=== PATIENT | female | born 1955 | race Caucasian/White ===

== ENCOUNTER 2021-05-04 08:06 | Outpatient (CLI) | payer BC, SELFPAY ==
--- NOTE | ~2021-05-04 | MM_ITS ---
EXAMINATION: MM screening [facility] BI w yolanda HISTORY: Screening mammogram TECHNIQUE: Craniocaudal and mediolateral oblique 3-D tomosynthesis images were obtained and synthetic 2-D images were generated. CAD analysis was submitted and interpreted. COMPARISON: 05/02/2019, 08/07/2014, 03/14/2012 BREAST PARENCHYMAL COMPOSITION: The breasts are heterogeneously dense, which may obscure small masses . FINDINGS: There is no evidence of suspicious mass, calcification, or architectural distortion to sugg est malignancy in either breast. There has been no suspicious interval change. IMPRESSION: 1. No mammographic evidence of malignancy. 2. Recommend routine screening mammography in one year. BI-RADS Category 1: Negative Reviewed, dictated and finalized at location A. ED MILK MIXER
== END 2021-05-04 08:07 | disposition home or self-care (01) ==
LOC: ANHIMG 08:09
PROVIDERS: PCP Family Medicine; Visit Provider Student in an Organized Health Care Education/Training Program
DX: Z12.31 Encounter for screening mammogram for malignant neoplasm of breast (principal)
CPT/HCPCS: 77063; 77067

== ENCOUNTER 2022-07-12 08:24 | Outpatient (CLI) | payer MEDICARE, SELFPAY ==
[2022-07-12 13:11] LABS: Alanine Aminotransferase 21 U/L (6-35); Albumin Level 4.2 g/dL (3.5-5.1); Alkaline Phosphatase 63 U/L (38-126); Anion Gap 4 mmol/L (8-16); Aspartate Amino Transferase 39 U/L (14-36); Bilirubin,Total 0.8 mg/dL (0.2-1.3); Blood Urea Nitrogen 9 mg/dL (7-17); Calcium 9.1 mg/dL (8.4-10.2); Carbon Dioxide 30 mmol/L (22-30); Chloride 102 mmol/L (98-107); Cholesterol 266 mg/dL (0-200); Creatine Kinase 65 U/L (30-135); Estimated Glomerular Filt Rate > 60; Glucose 96 mg/dL (65-110); HDL Direct 74 mg/dL; LDL Cholesterol Direct 126 mg/dL; Potassium 3.8 mmol/L (3.4-5.0); Sodium 136 mmol/L (137-145); Triglycerides 91 mg/dL (<150)
== END 2022-07-12 08:25 | disposition home or self-care (01) ==
PROVIDERS: PCP Family Medicine; Visit Provider Specialist
DX: R00.2 Palpitations (principal); I10 Essential (primary) hypertension
CPT/HCPCS: 36415; 80053; 80061; 82550

== ENCOUNTER 2022-07-15 08:06 | Outpatient (CLI) | payer MEDICARE, SELFPAY ==
--- NOTE | ~2022-07-15 | DEXA_ITS ---
Bone Density Report Name: SOFIA OH Age: 67 Sex: Female Ethnicity: White Date of : 1955 Indication: postmenopausal; screening for osteoporosis; Referring Provider: OLY DE PAZ Study: Bone densitometry was performed. Exam Date: July 15, 2022 Accession number: [id number] Bone Density: Region BMD T-score Z-score Classification AP Spine(L1-L4) 0.892 -1.4 0.4 Osteopenia Femoral Neck (Left) 0.689 -1.4 0.1 Osteopenia Total Hip (Left) 0.819 -1.0 0.2 Normal Femoral Neck (Right) 0.597 -2.3 -0.8 Osteopenia Total Hip (Right) 0.853 -0.7 0.5 Normal Total Hip Mean 0.836 -0.9 0.4 Normal World Health Organization criteria for BMD impression classify patients as: Normal (T-score at or above -1.0), Osteopenia (T-score between -1.0 and -2.5), or Osteoporosis (T-score at or below -2.5). 10-year Fracture Risk(1): Major Osteoporotic Fracture 11% Hip Fracture 2.0% Reported Risk Factors: [place] (), Neck BMD=0.597, BMI=21.3 (1) FRAX(R) Version 3.08. Fracture probability calculated for an untreated patient. Fracture probability may be lower if the patient has received treatment. Clinical Information Provided by Patient: Has used the following medications: Vitamin D, Calcium Patient maximum height was 64.75 Menopause Age: 50 Drinks caffeinated beverages Onset of menses at age 14 Number of children 1 Impression: The patient has low bone mass, based on the Right Femoral Neck T-score. The patient has an estimated ten-year risk of hip fracture of 2% and an estimated ten-year risk of major fracture of 11%, based on the WHO FRAX algorithm. Discussion: BONE DENSITY IS LOW AT ONE OR MORE SKELETAL SITES. This patient's lowest T-score is low at one or more skeletal sites. It meets the World Health Organization's (WHO) criteria for ?low bone mass? (T-score between -1.0 and -2.5). The patient's 10-year risk of fracture as calculated by FRAX is less than the threshold where pharmacological therapy is recommended by the National Osteoporosis Foundation (NOF). However, all treatment decisions require clinical judgment and consideration of individual patient factors, including patient preferences, comorbidities, previous drug use, risk factors not captured in the FRAX model (e.g., frailty, falls, vitamin D deficiency, increased bone turnover, interval significant decline in bone density) and possible under or overestimation of fracture risk by FRAX. The patient should follow a healthful lifestyle (good nutrition with adequate calcium and vitamin D, and appropriate weight-bearing exercise). Follow-Up: Consider repeating this study in 2 to 3 years to reassess this patient's status, or sooner if there is some new clinical indication. Reported by: JAVAN on 07/15/2022 8:40:00 AM.
--- NOTE | ~2022-07-15 | MM_ITS ---
EXAMINATION: MM screening [facility] BI w yolanda HISTORY: Screening mammogram TECHNIQUE: Craniocaudal and mediolateral oblique 3-D tomosynthesis images were obtained and synthetic 2-D images were generated. CAD analysis was submitted and interpreted. COMPARISON: 04/30/2021, 05/02/2019 bilateral screening mammogram examinations BREAST PARENCHYMAL COMPOSITION: There are scattered areas of fibroglandular density. FINDINGS: There is no evidence of suspicious mass, calcification, or architectural distortion to sugg est malignancy in either breast. There has been no suspicious interval change. IMPRESSION: 1. No mammographic evidence of malignancy. 2. Recommend routine screening mammography in one year. BI-RADS Category 1: Negative Reviewed, dictated and finalized at location A. ORATE EVENT PLANNER
== END 2022-07-15 08:07 | disposition home or self-care (01) ==
LOC: ANHIMG 08:13
PROVIDERS: PCP Family Medicine; Visit Provider Student in an Organized Health Care Education/Training Program
DX: Z12.31 Encounter for screening mammogram for malignant neoplasm of breast (principal); Z78.0 Asymptomatic menopausal state; M85.88 Other specified disorders of bone density and structure, other site; M85.852 Other specified disorders of bone density and structure, left thigh; M85.851 Other specified disorders of bone density and structure, right thigh
CPT/HCPCS: 77063; 77067; 77080

== ENCOUNTER 2023-01-30 10:21 | Outpatient (CLI) | payer MEDICARE, SELFPAY ==
[2023-01-30 11:30] LABS: LDL Cholesterol Direct 136 mg/dL
[2023-01-30 11:55] LABS: Alanine Aminotransferase 18 U/L (6-35); Albumin Level 4.2 g/dL (3.5-5.1); Alkaline Phosphatase 66 U/L (38-126); Anion Gap 3 mmol/L (8-16); Aspartate Amino Transferase 28 U/L (14-36); Bilirubin,Total 0.7 mg/dL (0.2-1.3); Blood Urea Nitrogen 12 mg/dL (7-17); Calcium 9.3 mg/dL (8.4-10.2); Carbon Dioxide 29 mmol/L (22-30); Chloride 103 mmol/L (98-107); Cholesterol 254 mg/dL (0-200); Creatine Kinase 62 U/L (30-135); Estimated Glomerular Filt Rate > 60; Glucose 99 mg/dL (65-110); HDL Direct 77 mg/dL; Potassium 4.3 mmol/L (3.4-5.0); Sodium 135 mmol/L (137-145); Triglycerides 66 mg/dL (<150)
== END 2023-01-30 10:22 | disposition home or self-care (01) ==
PROVIDERS: PCP Family Medicine; Visit Provider Specialist
DX: E78.5 Hyperlipidemia, unspecified (principal)
CPT/HCPCS: 36415; 80053; 80061; 82550

== ENCOUNTER 2023-09-21 07:56 | Outpatient (CLI) | payer MEDICARE, SELFPAY ==
--- NOTE | ~2023-09-21 | MM_ITS ---
EXAMINATION: MM screening [facility] BI w yolanda HISTORY: Screening TECHNIQUE: Craniocaudal and mediolateral oblique 3-D tomosynthesis images were obtained and synthetic 2-D images were generated. CAD analysis was submitted and interpreted. COMPARISON: No prior mammogram is available for comparison at this institution. Comparison to multipl e prior studies sequentially, with oldest reviewed study dated 05/04/2011. BREAST PARENCHYMAL COMPOSITION: There are scattered areas of fibroglandular density. FINDINGS: There is no evidence of suspicious mass, calcification, or architectural distortion to sugg est malignancy in either breast. There has been no suspicious interval change. IMPRESSION: 1. No mammographic evidence of malignancy. 2. Recommend routine screening mammography in one year. BI-RADS Category 1: Negative Reviewed, dictated and finalized at location A.
== END 2023-09-21 07:57 | disposition home or self-care (01) ==
LOC: ANHIMG 08:00
PROVIDERS: PCP Family Medicine; Visit Provider Student in an Organized Health Care Education/Training Program
DX: Z12.31 Encounter for screening mammogram for malignant neoplasm of breast (principal)
CPT/HCPCS: 77063; 77067

== ENCOUNTER 2024-02-14 07:39 | Day surgery (SDC) | payer MEDICARE, SELFPAY ==
[2024-01-23 14:31] VITALS: BMI 22.1
[2024-01-30 11:24] VITALS: BMI 22.3
[2024-02-14] MEDS: LACTATED RINGERS 1,000 ML 150 ML IV CONT (08:47)
[2024-02-14 08:48] VITALS: BP 141/78; PULSE 79; RESP 16; TEMP 37.2; O2SAT 100; BMI 21.4
--- NOTE | 2024-02-14 08:52 | P.PNAN_ITS ---
Anes - Initial Pre Proc Eval Procedure: Operation Date: 02/14/24 10:00 Proposed Procedures p Diagnostic Colonoscopy - Ganga Lezama MD Date/Time: 02/14/24 08:52 Surgeon: Ganga Lezama MD Pre Op Diagnosis: History of Colon Polyps Patient Data Age: 68 Gender: F Height: 1.63 m Weight: 56.6 kg Last Vital Signs Temp 37.2 C 02/14/24 08:48 Pulse 78 02/14/24 08:50 Resp 14 02/14/24 08:50 BP 96/63 L 02/14/24 08:50 Pulse Ox 99 02/14/24 08:50 O2 Del Method Room Air 02/14/24 08:50 Allergies Allergy/AdvReac Type Severity Reaction Status Date / Time codeine Allergy Unknown Dizziness Verified 02/14/24 08:38 Home Medications Medication Instructions Recorded Confirmed Type losartan 50 mg tablet 50 mg PO DAILY 04/06/20 02/14/24 History ezetimibe 10 mg tablet 10 mg PO DAILY 07/05/23 02/14/24 History sodium,potassium,mag sulfates 17.5 See Rx Instructions PO .COMPLEX 01/23/24 02/14/24 Rx gram-3.13 gram-1.6 gram oral soln #354 mL (Suprep Bowel Prep Kit) multivit with minerals-iron 18 1 tablet PO DAILY 01/30/24 02/14/24 History mg-folic ac 400 mcg-vit K 25 mcg tablet (Adults Multivitamin) omega-3 fatty acids-fish oil 300 1 cap PO DAILY 01/30/24 02/14/24 History mg-500 mg capsule (Fish Oil) Patient hx anesthesia problems: none Family hx anesthesia problems: none Results Review: All pre-operative results and documents have been reviewed as part of the pre- operative evaluation. [facility] Past Medical History Medical History Acid reflux Hyperlipidemia Hypertension Spontaneous Thyroid disease Surgical History Surgical History H/O dilation and curettage Family History Family History Mother Hypertension, Onset Age: 84 Cerebrovascular accident, Onset Age: 84 Father , 89 Acute myocardial infarction Social History Social History Smoking status: Never smoker Second hand tobacco smoke exposure: No Alcohol intake: current Substance use: never Substance use type: does not use Living arrangements: with family Spiritual care concerns: No Anes - Eval Final PreProcedure Day of Procedure 02/14/24 08:52 Patient weight: normal Heart: regular rate and rhythm Lungs: clear to auscultation Airway: Mallampati scale class 1 Neurological: alert and oriented ASA classification: II Emergent: no Anesthetic plan: proceed Anesthesia type and monitoring: general GIVS Results Review: All pre-operative results and documents have been reviewed as part of the pre- operative evaluation. Informed Consent: The patient's anesthetic plan and its attendant risks and benefits were disc ussed with the patient/family/POA. Questions were solicited and answers provided to the satisfaction of the patient/family/POA.
--- NOTE | 2024-02-14 09:02 | P.HP_ITS ---
History of Present Illness History of Present Illness Consent: Risks, benefits, and alternatives have been discussed and questions answered. Patient agrees to proceed with procedure. Chief complaint: History of Colon Polyps Narrative: Rama Rodriguez is a 68 year old female presents for screening colonoscopy. Patient's current weight appetite and bowel movements are normal. She denies abdominal pain. Patient has had no bleeding. Family history is noncontribut ory. Was told she had a polyp 5 years ago. She presents today for follow-up exam. Review of Systems Review of Systems: All systems reviewed & are unremarkable except as noted in HPI and below PMFSH Past Medical History Medical History Acid reflux Hyperlipidemia Hypertension Spontaneous Thyroid disease Surgical History Surgical History H/O dilation and curettage Family History Family History Mother Hypertension, Onset Age: 84 Cerebrovascular accident, Onset Age: 84 Father , 89 Acute myocardial infarction Social History Social History Smoking status: Never smoker Second hand tobacco smoke exposure: No Alcohol intake: current Substance use: never Substance use type: does not use Living arrangements: with family Spiritual care concerns: No Meds Home Medications and Allergies Home Medications Medication Instructions Recorded Confirmed Type losartan 50 mg tablet 50 mg PO DAILY 04/06/20 02/14/24 History ezetimibe 10 mg tablet 10 mg PO DAILY 07/05/23 02/14/24 History sodium,potassium,mag sulfates 17.5 See Rx Instructions PO .COMPLEX 01/23/24 02/14/24 Rx gram-3.13 gram-1.6 gram oral soln #354 mL (Suprep Bowel Prep Kit) multivit with minerals-iron 18 1 tablet PO DAILY 01/30/24 02/14/24 History mg-folic ac 400 mcg-vit K 25 mcg tablet (Adults Multivitamin) omega-3 fatty acids-fish oil 300 1 cap PO DAILY 01/30/24 02/14/24 History mg-500 mg capsule (Fish Oil) Allergies Allergy/AdvReac Type Severity Reaction Status Date / Time codeine Allergy Unknown Dizziness Verified 02/14/24 08:38 Vital Signs Vital Signs - 24 hr 02/14/24 08:48 Temperature 99 F Pulse Rate 79 Respiratory Rate 16 Blood Pressure 141/78 H Pulse Oximetry 100 Oxygen Delivery Room Air Exam Narrative: Physical exam reveals patient to be alert. Vital signs stable. HEENT exam is unremarkable. Is anicteric. Clear to auscultation and percussion is without murmur sounds. Abdomen bowel sounds are present soft nontender with no organomegaly. Digital external rectal exam normal. Assessment and Plan Assessment and plan (1) History of colon polyps: Code(s): Z86.010 - Personal history of colonic polyps Status: Acute Assessment and Plan: Patient gives a history of a colon polyp identified elsewhere 5 years ago. She presents today for follow-up screening colonoscopy. Further recommendations may be given after endoscopy.
[2024-02-14 09:28] VITALS: BP 120/60; PULSE 70; RESP 16; O2SAT 100
[2024-02-14 09:38] VITALS: BP 129/75; PULSE 68; RESP 16; O2SAT 100
--- NOTE | 2024-02-14 09:42 | SUR.PREOP ---
0845 - MD Hawthorne notifed pt took Losartan this AM.
[2024-02-14 09:48] VITALS: BP 138/77; PULSE 67; RESP 16; O2SAT 100
--- NOTE | 2024-02-14 10:39 | WPDANESPN ---
Anes - Prog Note Post-Op Date/Time: 02/14/24 10:39 Cardiovascular status: normal Respiratory status: normal Airway patency: baseline Mental status: baseline Post-Op hydration status: normal Vital Signs: Last Vital Signs Temp 37.2 C 02/14/24 08:48 Pulse 67 02/14/24 09:48 Resp 16 02/14/24 09:48 BP 138/77 02/14/24 09:48 Pulse Ox 100 02/14/24 09:48 O2 Del Method Room Air 02/14/24 09:48 Pain Score (VAS): 0 I/O: Intake & Output 02/13/24 02/14/24 02/14/24 23:59 07:59 15:59 Intake Total 1000 Balance 1000 Post-procedural complaints: none Patient Feedback: Patient satisfied with anesthetic care. Other Findings: Patient vital signs back to baseline. Patient denies nausea and vomiting. Patient's pain under control. Patient OK for discharge.
== END 2024-02-14 10:02 | disposition home or self-care (01) ==
PROVIDERS: PCP Family Medicine; Visit Provider Internal Medicine Gastroenterology
PROC: 0DJD8ZZ Inspection of Lower Intestinal Tract, Via Natural or Artificial Opening Endoscopic (ICD-10-PCS; CPT 45378; principal; 2024-02-14 10:00)
DX: Z86.010 Personal history of colon polyps (principal); D12.5 Benign neoplasm of sigmoid colon; K64.8 Other hemorrhoids
CPT/HCPCS: 45385

== ENCOUNTER 2024-02-14 14:57 | Outpatient (NON) | payer MEDICARE, SELFPAY | END 2024-02-14 14:58 | disposition home or self-care (01) | LOC: ANHLAB 15:00 | PROVIDERS: PCP Family Medicine; Visit Provider Internal Medicine Gastroenterology | DX: K63.5 Polyp of colon (principal); Z86.010 Personal history of colon polyps | CPT/HCPCS: 88305 ==

== ENCOUNTER 2024-09-29 15:28 | Outpatient (CLI) | payer MEDICARE, SELFPAY ==
--- NOTE | ~2024-09-29 | MM_ITS ---
EXAMINATION: MM screening [facility] BI w yolanda HISTORY: Screening TECHNIQUE: Craniocaudal and mediolateral oblique 3-D tomosynthesis images were obtained and synthetic 2-D images were generated. CAD analysis was submitted and interpreted. COMPARISON: 09/21/2023 and dating back to 05/02/2019 BREAST PARENCHYMAL COMPOSITION: There are scattered areas of fibroglandular density. FINDINGS: Punctate calcifications detected bilaterally, vascular in origin and benign in appearance. Punctate calcifications are detected bilaterally, stable, diffuse and benign in appearance. Stable parenchymal pattern without suspicious microcalcifications, architectural distortion, discrete masses or significant asymmetry. IMPRESSION: 1. No mammographic evidence of malignancy. 2. Recommend routine screening mammography in one year. BI-RADS Category 2: Benign finding(s). Reviewed, dictated and finalized at location A.
--- OUTSIDE RECORDS SUMMARY | 2024-09-29 17:24 | XMS_ITS | Encounter Summary ---
Author Organization [facility] Address [address] [place] [address] Care Team Providers Care Waste Machine Tender Name Role Phone Neli Albrecht MD Primary Care Provider + Encounter Details Date Type Department Care Team (Latest Contact Info) Description 09/06/2024 Scan [facility] Scanned, Doc Med Group Social History Tobacco Use Types Packs/Day Years Used Date Smoking Tobacco: Never Passive Smoke Exposure: Never Smokeless Tobacco: Never Comments:I have nver smoked Alcohol Use Standard Drinks/Week Comments Yes 0 (1 standard drink = 0.6 oz pur e alcohol) social, maybe 2-3/week PHQ-2 Answer Date Recorded Patient Health Questionnaire-2 Score 0 08/19/2024 Comments No Sex and Gender Information Value Date Recorded Sex Assigned at Female 08/19/2024 8:54 AM CDT Legal Sex Female 4:53 PM CDT Gender Identity Not on file Sexual Orientation Not on file documented as of this encounter Plan of Treatment Upcoming Encounters Date Type Department Care Team (Late st Contact Info) Description 08/25/2025 10:30 AM CDT Office Visit [facility] Family Medicine - [place] [address] [facility] [address] [place] [address] [phone] Neli Albrecht MD [address] [facility] [address] [place] [address] [phone] 08/25/2025 11:30 AM CDT Office Visit [facility] Family Medicine - [place] [address] [facility] [address] [place] [address] [phone] Neli Albrecht MD [address] [place] [address] documented as of this encounter Visit Diagnoses Not on filedocumented in this encounter Care Teams Waste Machine Tender Relationship Specialty Start Date End Date Neli Albrecht MD [address] [place] [address] PCP - General FAMILY PRACTICE 08/19/24 documented as of this encounter
--- OUTSIDE RECORDS SUMMARY | 2024-09-29 17:24 | XMS_ITS | Encounter Summary ---
Author Organization [facility] Address [address] [place] [address] Care Team Providers Care Funeral Home Location Manager Name Role Phone Neli Albrecht MD Primary [...] Description 08/25/2025 10:30 AM CDT Office Visit [facility] Family Medicine - [place] [address] [facility] [address] [place] [address] [phone] Neli Albrecht MD [address] [facility] [address] [place] [address] [phone] 08/25/2025 11:30 AM CDT Office Visit [facility] Family Medicine - [place] [address] [facility] [address] [place] [address] [phone] Neli Albrecht MD [address] [place] [address] documented as of this encounter Visit Diagnoses Not on filedocumented in this encounter Care Teams Funeral Home Location Manager Relationship Specialty Start Date End Date Neli Albrecht MD [address] [place] [address] PCP - General FAMILY PRACTICE 08/19/24 documented as of this encounter
--- OUTSIDE RECORDS SUMMARY | 2024-09-29 17:24 | XMS_ITS | Encounter Summary ---
Author Organization [facility] Care Team Providers Care Finish Mender Name Role Phone Ilsa Hebert Primary Care Provider + Ilsa Hebert Primary Care Provider + Jak Chisholm MD Primary Care Provider [phone] Encounter Details Date Type Department Care Team (Latest Contact Info) Description 04/03/2016 Orders Only [facility] ProviderCamila MD [address] [place], [place] [id number] Social History Tobacco Use Types Packs/Day Years Used Date Smoking Tobacco: Never Assessed Comments Unknown Sex and Gender Information Value Date Recorded Sex Assigned at Not on file Legal Sex Female 2:45 AM INCINERATOR OPERATOR Gender Identity Female 09/08/2020 3:16 PM CDT Sexual Orientation Straight 09/08/2020 3: 16 PM CDT documented as of this encounter Plan of Treatment Not on file documented as of this encounter Procedures Procedure Name Priority Date/Time Associated Diagnosis Comments SCAN - LABS 04/03/2016 12:00 AM CDT documented in this encounter Results * SCAN - LABS (04/03/2016 12:00 AM CDT) Narrative 04/03/2016 12:00 AM CDT Ordered by an unspecified provider. Historical Provider Final Res ult documented in this encounter Visit Diagnoses Not on filedocumented in this encounter Additional Health Concerns Infection Onset Date Last Indicated Resolved Time COVID: Suspected 04/26/2022 04/26/202204/26/2022 3:10 PM INCINERATOR OPERATOR documented as of this encounter Care Teams Finish Mender Relationship Specialty Start Date End Date Ilsa Hebert PA [address] [place] [address] PCP - General 05/30/17 08/21/18 Ilsa Hebert PA [address] [place] [address] PCP - General 08/22/18 12/29/18 Jak Chisholm MD [address] [place] [address] PCP - General 12/30/18 documented as of this encounter
--- OUTSIDE RECORDS SUMMARY | 2024-09-29 17:24 | XMS_ITS | Clinical Summary ---
Author Organization [facility] Address [address] [place] [address] Care Team Providers Care Negative Spotter Name Role Phone Jak Chisholm MD Primary Care Provider [phone] Allergies Active Allergy Reactions Criticality Noted Date Comments Codeine Dizziness,Unknown Low 12/04/2013 dizziness dizzy Medications ixlnnuioshzs-zsjg-d olic acid 18-400 mg-mcg tablet Rx: Multi Complete Active calcium-vits L3-W-G3-minerals 166.75 mg- 166.75 unit capsule Rx: Calcium Activ e fish oil-dha-epa 1,200-144-216 mg capsule Take by mouth Active losartan (COZAAR) 50 mg tablet TAKE 1 TABLET BY MOUTH EVERY DAY 90 tablet 2 4 Active ezetimibe (ZETIA) 10 mg tabletIndications:M ixed hyperlipidemia Take 1 tablet (10 mg total) by mouth daily 90 tablet 1 5 Active Active Problems Problem Noted Date Diagnosed Date Memory loss of unknown cause 05/14/2023 Episodic cluster headache, not intractable 07/13 Assessment & Plan (07/13/2021 11:02 AM SAMPLE TESTER GRINDER): Having multiple headaches per day - new Discussed cluster headaches vs. Migraine vs ? Will have patient monitor blood pressure daily, could be related Defers medications for now If BP normal and headaches persist, will get CT head Chronic right lower quadrant pain 12/02/2018 Essential hypertension 12/02/2018 Assessment & Plan (08/19/2020 2:14 PM SAMPLE TESTER GRINDER): Stable, no changes. Continue current regimen with losartan Mixed hyperlipidemia 12/02/2018 Assessment & Plan (08/19/2020 2:14 PM SAMPLE TESTER GRINDER): Stable, no changes. Continue current regimen with statin Thyroid nodule 07/31/2017 Resolved Problems Problem Noted Date Diagnosed Date Resolved Date Abdominal pain 09/10/2020 02/08/2023 Nausea 09/10/2020 02/08/2023 Melena 09/10/2020 02/08/2023 Chest pain at rest 08/19/2020 Fever blister 08/19/2020 02/08/2023 Assessment & Plan (08/19/2020 2:11 PM SAMPLE TESTER GRINDER): Recurrent May use valtrex PRN for each outbreak Cough 12/02/2018 02/08/2023 Immunizations Immunization Administration Dates Next Due Influenza, Quadrivalent, Cassy l Culture-based MDCK, Antibiotic Free, Intramuscular 03/20/2019 Influenza, Quadrivalent, Cassy l Culture-based MDCK, Preservative Free, Antibiotic Free, Intramuscular 03/07/2022 Influenza, Quadrivalent, Hig h Dose, Preservative Free, Intrr 02/26/2023 Influenza, Quadrivalent, Spl it, Intramuscular 03/26/2020 Influenza, Quadrivalent, Spl it, Preservative Free, Intramuscular 03/14/2021,03/19/2018,03/18/2018 Influenza, Unspecified 02/11/2023,2021(Deferred: Patient Refused) Evostor (J&J) SARS-CoV-2 Vaccination 08/16/2020 Pneumococcal Conjugate Pcv20 02/08/2023 Tdap 08/31/2022 Typhoid Inactivated 08/26/2022 ZOSTER Recombinant 05/19/2019,03/20/2019 Surgical History Surgery Date Site/Laterality Comments NO PAST SURGERIES Medical History Medical History Date Comments Hypertension Hyperlipidemia Family History Medical History Relation Name Comments Heart disease Brother Stroke Mother Relation Name Status Comments Brother Father Alive Mother Alive Sister Social History Tobacco Use Types Packs/Day Years Used Date Smoking Tobacco: Never Smokeless Tobacco: Never Tobacco Cessation:Counseling Given: Not Answered Alcohol Use Standard Drinks/Week Comments Yes 0 (1 standard drink = 0.6 oz pur e alcohol) AUDIT-C Answer Date Recorded Q1: How often do you have a drink containing alc ohol? 2-4 times a month 02/08/2023 Q2: How many drinks containi ng alcohol do you have on a typical day when you are drinking? 1 or 2 02/08/2023 Q3: How often do you have si x or more drinks on one occasion? Never 02/08/2023 PHQ-2 Answer Date Recorded PHQ-2 Total Score (If total score is 3 or more points, staff should administer the PHQ-9) 0 12/21/2023 PHQ-9 Answer Date Recorded PHQ-9 Total Score 2 12/21/2023 Personal Safety Answer Date Recorded Getting School Help Needed Not on file 05/21 Comments No Sex and Gender Information Value Date Recorded Sex Assigned at Not on file Legal Sex Female 2:45 AM SAMPLE TESTER GRINDER Gender Identity Female 09/08/2020 3:16 PM CDT Sexual Orientation Straight 09/08/2020 3: 16 PM CDT Obstetrics History Last Filed Vital Signs Vital Sign Reading Time Taken Comments Blood Pressure 128/68 12/21/2023 10:50 AM CDT Pulse 76 12/21/2023 10:50 AM CDT Temperature 36.6 C (97.8 F) 12/21/2023 10:50 AM CDT Respiratory Rate 18 12/21/2023 10:5 0 AM CDT Oxygen Saturation 98% 12/21/2023 10: 50 AM CDT Inhaled Oxygen Concentration - - Weight 58.4 kg (128 lb 12.8 oz) 024 10:50 AM CDT Height 162.6 cm (5' 4 ) 12/21/2023 10:5 0 AM CDT Body Mass Index 22.11 12/21/2023 10:50 AM CDT Plan of Treatment Health Maintenance Due Date Last Done Comments Hepatitis C Screening 1955 Hepatitis B Screening 1975 Well Visit 65+ 02/09/2024 02/08/2023 Covid-19 Vaccine (2023-07 5 season) 2024 02/26/2023, 05/19/2022, 01/15/2022, Additional history exists Influenza Vaccine (#1) 2024 , 02/11/2023, 03/07/2022, Additional history exists Fall Risk Assessment 05/14/2024 05/14/2023, 02/09/20 Osteoporosis Screening-Bone Density Scan 07/15/2024 07/15/2022 Breast Cancer Screening-Mammogram 09/20/2024 09/21/2023, 07/15/2022, 07/13/2017, Additional history exists Depression Screening 12/20/2024 12/21/2023, 12/21/2023, 05/14/2023, Additional history exists Colon Cancer Screening-Colonoscopy 02/13/2029 02/14/2024, 10/25/2018, 10/25/2018 DTaP/Tdap/Td Vaccine (2 - Td or Tdap) 08/31/2032 08/31/2022 Zoster Vaccine Completed 05/19/2019, 03/20/2019 Pneumococcal vaccine 65+ Completed 02/08/2023 Colon Cancer Screening-CT Colonography Discontinued 02/14/2024, 10/25/2018, 10/25/2018 Colon Cancer Screening-DNA Stool Discontinued 02/14/2024, 10/25/2018, 10/25/2018 Colon Cancer Screening-FIT Discontinued 02/13, 10/25/2018, 10/25/2018 Colon Cancer Screening-Sigmoidoscopy Discontinued 02/14/2024, 10/25/2018, 10/25/2018 Procedures Procedure Name Priority Date/Time Associated Diagnosis Comments COLONOSCOPY Routine 02/14/2024 4:32 PM CDT SCREENING MAMMOGRAM BILATERAL W MANI Schedule Routine, Read Routine (OP Routine) 09/21/2023 DEXA AXIAL SKELETON BONE DENSITY 1 OR MORE SITES Schedule Routine, Read Routine (OP Routine) 07/15/2022 4:16 PM SAMPLE TESTER GRINDER from Last 3 Months or Most Recently Relevant to Health Maintenance Results * Colonoscopy (02/14/2024 4:32 PM CDT) Anatomical Region Laterality Modality Other us Historical Provider ENDOSCOPY PROCEDURES Roxanne l Result * Screening Mammogram Bilateral W Mani (09/21/2023) Anatomical Region Laterality Modality Breast Bilateral Mammography us Historical Provider IMG MAMMO PROCEDURES Roxanne l Result * Dexa Axial Skeleton Bone Density 1 or 2 Site (07/15/2022 4:16 PM SAMPLE TESTER GRINDER) Anatomical Region Laterality Modality Body N/A Radiographic Cara ging us Historical Provider MD TOMPKINS DXA PROCEDURES Final Result from Last 3 Months or Most Recently Relevant to Health Maintenance Insurance MEDICARE [employer] MEDICARE [employer] Care Teams Negative Spotter Relationship Specialty Start Date End Date Jak Chisholm MD PCP - General 12/30/18
--- OUTSIDE RECORDS SUMMARY | 2024-09-29 17:24 | XMS_ITS | Encounter Summary ---
Author Organization [facility] Address [address] [place] [id number] Care Team Providers Care Commercial Specialist Name Role Phone Neli Albrecht MD Primary Care Provider + Encounter Details Date Type Department Care Team (Late st Contact Info) Description 08/21/2024 Good Deal Message Enc [facility] Family Medicine - [place] [address] [place] [address] [phone] Neli Albrecht MD [address] [place] [address] [phone] Update health status Social History Tobacco Use Types Packs/Day Years [...] on file documented as of this encounter Progress Notes * Neli Albrecht MD - 08/22/2024 7:33 AM CDT Great, thanks! documented in this encounter Plan of Treatment Upcoming Encounters Date Type Department Care Team (Late st Contact Info) Description 08/25/2025 10:30 AM CDT Office Visit [facility] [place] [phone] [address] [phone] Neli Albrecht MD [address] [facility] [address] [place] [address] [phone] 08/25/2025 11:30 AM CDT Office Visit [facility] - [address] [phone] Neli Albrecht MD [address] [facility] [address] [place] [phone] documented as of this encounter Visit Diagnoses Not on filedocumented in this encounter Care Teams Commercial Specialist Relationship Specialty Start Date End Date Neli Albrecht MD [address] [place] [address] [place] [address] [phone] PCP - General FAMILY PRACTICE 08/19/24 documented as of this encounter
--- OUTSIDE RECORDS SUMMARY | 2024-09-29 17:24 | XMS_ITS | Referral Summary ---
Author Organization [facility] Address [address] [place] [address] Care Team Providers Care Vehicle Calibration Engineer Name Role Phone Jak Chisholm MD Primary Care Provider [phone] Allergies Active Allergy Reactions Criticality Noted Date Comments Codeine Dizziness,Unknown Low 12/04/2013 dizziness dizzy Medications tpmayyhygety-wlmc-a olic acid 18-400 mg-mcg tablet Rx: Multi Complete Active calcium-vits Y8-U-B1-minerals 166.75 mg- 166.75 unit capsule Rx: Calcium [...] 07/13 Assessment & Plan (07/13/2021 11:02 AM SPINNING MACHINE TENDER): Having multiple headaches per day - new Discussed cluster headaches vs. Migraine vs ? Will have patient monitor blood pressure daily, could be related Defers medications for now If BP normal and headaches persist, will get CT head Chronic right lower quadrant pain 12/02/2018 Essential hypertension 12/02/2018 Assessment & Plan (08/19/2020 2:14 PM SPINNING MACHINE TENDER): Stable, no changes. Continue current regimen with losartan Mixed hyperlipidemia 12/02/2018 Assessment & Plan (08/19/2020 2:14 PM SPINNING MACHINE TENDER): Stable, no changes. Continue current regimen with statin Thyroid nodule 07/31/2017 Resolved Problems Problem Noted Date Diagnosed Date Resolved Date Abdominal pain 09/10/2020 02/08/2023 Nausea 09/10/2020 02/08/2023 Melena 09/10/2020 02/08/2023 Chest pain at rest 08/19/2020 Fever blister 08/19/2020 02/08/2023 Assessment & Plan (08/19/2020 2:11 PM SPINNING MACHINE TENDER): Recurrent May use valtrex PRN for each [...] Intramuscular 03/14/2021,03/19/2018,03/18/2018 Influenza, Unspecified 02/11/2023,2021(Deferred: Patient Refused) Contatta (J&J) SARS-CoV-2 Vaccination 08/16/2020 Pneumococcal Conjugate Pcv20 02/08/2023 Tdap 08/31/2022 Typhoid Inactivated 08/26/2022 ZOSTER Recombinant 05/19/2019,03/20/2019 Social History Tobacco Use Types Packs/Day Years [...] on file Legal Sex Female 2:45 AM SPINNING MACHINE TENDER Gender Identity Female 09/08/2020 3:16 PM CDT Sexual Orientation Straight 09/08/2020 3: 16 PM CDT Last Filed Vital Signs Vital Sign Reading [...] 12/21/2023 10:50 AM CDT Plan of Treatment Not on file Procedures Procedure Name Priority Date/Time Associated Diagnosis Comments COLONOSCOPY Routine 02/14/2024 4:32 PM CDT SCREENING MAMMOGRAM BILATERAL W MANI Schedule Routine, Read Routine (OP Routine) 09/21/2023 DEXA AXIAL SKELETON BONE DENSITY 1 OR MORE SITES Schedule Routine, Read Routine (OP Routine) 07/15/2022 4:16 PM SPINNING MACHINE TENDER from Last 3 Months or Most Recently Relevant to Health Maintenance Results * Colonoscopy (02/14/2024 4:32 PM CDT) Anatomical Region Laterality Modality Other us Historical Provider ENDOSCOPY PROCEDURES Roxanne mooney Result * Screening Mammogram Bilateral W Mani (09/21/2023) Anatomical Region Laterality Modality Breast Bilateral Mammography us Historical Provider IMAnika MAMMO PROCEDURES Roxanne l Result * Dexa Axial Skeleton Bone Density 1 or 2 Site (07/15/2022 4:16 PM SPINNING MACHINE TENDER) Anatomical Region Laterality Modality Body N/A Radiographic Cara ging us Historical Provider MD TOMPKINS DXA PROCEDURES Final Result from Last 3 Months or Most Recently Relevant to Health Maintenance [place] [address] MEDICARE [employer] Care Teams Vehicle Calibration Engineer Relationship Specialty Start Date End Date Jak Chisholm MD PCP - General 12/30/18
--- OUTSIDE RECORDS SUMMARY | 2024-09-29 17:24 | XMS_ITS | Data Portability ---
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 Role Phone MONOTOBY MOR Primary Care Provider [phone] Assessment Encounter Date Assessment Date Assessment LastModified by Organization Details LastModified Time 12/27/2021 12/27/2021 Patient Examined by CECILIO Gaffney, Documentation reviewed and approved by supervising physician patrick Not available 12/27/2021 11:55:37 06/27/2022 06/27/2022 Patient Examined by CECILIO Gaffney, Documentation reviewed and approved by supervising physician ignacia Not available 06/24/2022 03:07:02 Plan of Treatment Reminders Order Date Submit Date Provider Last Modified By Organization Details Last Modified Time Details Appointments None recorded. Lab None recorded. Referral None recorded. Procedures None recorded. Surgeries None recorded. Imaging electrocard iogram 2020 021 JOHANNA Not available 13:46:39 electrocard iogram 2020 021 JOHANNA Not available 13:46:08 Medication Orders Crestor 10 mg tablet 2021 022 [email or web address] [id number], [address], [place], [id number], 11:55:13 Patient TargetsNo targets recorded. Patient Instructions Encounter Date Encounter Id Patient Instructions Last Modified By Organization Details Last Modified Time 01/03/2021 [id number] chest pain: care instructions mzabad Not available 01/03/2021 15:33:55 heart valve disease: care instructions mzabad Not available 01/03/2021 15:33:55 mitral valve prolapse: care instructions mzabad Not available 01/03/2021 15:33:55 elevated blood pressure: care instructions mzabad Not available 01/03/2021 15:33:55 palpitations: care instructions mzabad Not available 01/03/2021 15:33:55 high cholesterol: care instructions mzabad Not available 01/03/2021 15:33:55 06/27/2022 [id number] Weight loss, pounds Exercise advised Low cholesterol diet advised Low sodium diet advised. [email or web address] Not available 06/27/2022 11:59:33 02/06/2023 [id number] Exercise advised Low cholesterol diet advised Low sodium diet advised. [email or web address] Not available 02/06/2023 14:43:05 Reason for Referral None Reported. Results Created Date Observation Date Name Description Value Unit Range Abnormal Flag Note LastModifiedBy Organization Detail LastModifiedTime 01/01/20 21 12/31/2020 elect rocar diogr am No observ ation record ed. ignacia Biswas MD [address], [place], [address], 04/07/2021 13:46:39 01/01/20 21 12/31/2020 elect rocar diogr am No observ ation record ed. ignacia Biswas MD [address], [place], [address], 04/07/2021 13:46:08 01/11/20 21 01/03/2021 elect rocar diogr am No observ ation record ed. [email or web address] Not Available 2020 10:28:24 12/29/19 22 12/27/2021 elect rocar diogr am No observ ation record ed. [email or web address] Not Available 2021 10:24:53 07/06/19 23 06/27/2022 elect rocar diogr am No observ ation record ed. [email or web address] Not Available 2022 16:15:35 08/02/19 23 07/25/2022 exerc ise stres s echoc ardio gram No observ ation record ed. [email or web address] Not Available 2022 09:56:41 08/24/1908/01/2022 , brad id arter y No observ ation record ed. [email or web address] Not Available 2022 11:29:11 02/08/20 23 02/06/2023 micki laragr am No observ ation record ed. [email or web address] Not Available 2022 11:59:44 Result Notes None recorded. Problems Name Problem SNOMED Code Status Onset Date Resolution Date Notes Provider Name and Address Organization Details Recorded Time Hyperlipidemia 51597383 Active 2017 Soila Urbano [facility], [place] - [facility] 3 03:03:58 Hypertensive disorder 23858692 Active 2017 Soila Urbano [facility], [place] - [facility] 3 03:04:03 Palpitations 10636822 Active 2017 Maxi Pate [facility], [place] - [facility] 8 16:42:23 Mitral valve prolapse 540643873 Active 2017 Maxi Pate [facility], [place] - [facility] 8 16:42:30 Thyroid nodule 388380620 Active 2017 Hala Carmen [facility], [place] - [facility] 8 12:01:54 Family history of coronary arterioscleros is 805870914 Active 2018 Maxi Pate [facility], [place] - [facility] 9 12:22:57 Chest pain 21292070 Active 2018 Maxi Pate [facility], [place] - [facility] 9 12:23:08 Problem Notes None recorded. Procedures Surgical History None recorded. Imaging Results Imaging Date Name Status LastModified by Organization Details LastModified Time 12/31/2020 electrocardiogram completed ignacia [email or web address], [place], [address], 04/07/2021 13:46:39 12/31/2020 electrocardiogram completed ignacia Borges [facility] [address], [place], [address], 04/07/2021 13:46:08 01/03/2021 electrocardiogram completed [email or web address] Informa tion not available 02/01/2021 10:28:24 12/27/2021 electrocardiogram completed Informa tion not available 12/28/2021 10:24:53 06/27/2022 electrocardiogram completed Informa tion not available 07/06/2022 16:15:35 07/25/2022 exercise stress echocardiogram completed Information not available 08/02/2022 09:56:41 08/01/2022 US, carotid artery completed Inform ation not available 08/23/2022 11:29:11 02/06/2023 electrocardiogram completed Informa tion not available 02/07/2023 11:59:44 Procedure Notes None recorded. Medical Equipment None Reported. Allergies Allergen ID Allergen Name Allergen Category Reaction Reaction Severity Criticality Documentation Date Start Date Code Code System Note Provider Name and Address Organization Details Recorded Time 7011 codeine medicatio n Not available Not available Not available 04/09/2018 2670 [facility]Norm Soila Urbano [place], [place] - [facility] 8 09:47:23 Medications Name Sig Start Date Stop Date Status Note LastModified by Organization Details LastModified Time binaxnow cov kit home liliam 08/08 completed Not Available Not Available Not Available losartan 50 mg tablet TAKE 1 TABLET BY MOUTH EVERY DAY active Not Available Not Available No t Available atorvasta tin 80 mg tablet Take 1 tablet every day by oral route in the evening. 09/21 completed pt was never prescrib ed 09/22/19 Not Available Not Available Not Available pravastat in 40 mg tablet TAKE 1 TABLET BY MOUTH EVERY DAY IN THE EVENING 12/27 completed Not Available Not Available Not Available benzonata te 200 mg capsule 08/08 completed pt no longer taking 06/27/22 [place] Not Available Not Available Not Available valacyclo vir 1 gram tablet TAKE 2 TABLETS BY MOUTH TWICE DAILY X 1 DAY FOR EACH OUTBREAK OF COLD SORES DIRECTED . active Not Available Not Available No t Available ondansetr on HCl 4 mg tablet 01/02 completed Not Available Not Available Not Available Coated Aspirin 325 mg tablet Take 1 tablet every day by oral route. 04/11 completed NO LONGER TAKING;A L 04/11/18 Not Available Not Available Not Available aspirin 81 mg tablet,de layed release TAKE 1 TABLET BY MOUTH EVERY DAY 12/27 completed Not Available Not Available Not Available blood pressure monitor kit UAD active Not Available Not Available Not Available pravastat in 80 mg tablet Take 1 tablet every day by oral route at bedtime. 09/21 completed pt not taking, muscle aches Not Available Not Available Not Available magnesium oxide 400 mg (241.3 mg magnesium ) tablet Take 1 tablet every other day by oral route. 12/31 completed Not Available Not Available Not Available benzonata te 100 mg capsule 08/08 completed pt no longer taking 06/27/22 [place] Not Available Not Available Not Available pantopraz ole 40 mg tablet,de layed release 1 tablet once a day 12/27 completed Not Available Not Available Not Available losartan 25 mg tablet Take 1 tablet every day by oral route. 01/02 completed Not Available Not Available Not Available methylpre dnisolone 4 mg tablets in a dose pack TAKE 6 TABLETS ON DAY 1 DIRECTED ON PACKAGE AND DECREASE BY 1 TAB EACH DAY FOR A TOTAL OF 6 DAYS active Not Available Not Available No t Available fluticaso ne propionat e 50 mcg/actua tion nasal spray,darby pension SHAKE LIQUID AND USE 2 SPRAYS IN EACH NOSTRIL DAILY 08/08 completed pt no longer taking 06/27/22 [place] Not Available Not Available Not Available Daily Multi-Vit marie tablet Take 1 tablet every day by oral route as directed . active Not Available Not Available No t Available ezetimibe 10 mg tablet TAKE 1 TABLET BY MOUTH EVERY DAY active Not Available Not Available No t Available rosuvasta tin 10 mg tablet TAKE 1 TABLET BY MOUTH EVERY DAY 06/27 completed Not Available Not Available Not Available Calcium 600 + D(3) 600 mg-5 mcg (200 unit) tablet Take 2 tablets every day by oral route as directed . active Not Available Not Available No t Available Livalo 1 mg tablet 01/02 completed Not Available Not Available Not Available Livalo 2 mg tablet Take 1 tablet every day by oral route. 09/21 completed pt not taking due to cost 09/22/19 Not Available Not Available Not Available Livalo 1 qd 09/21 completed Not Available Not Available Not Available Shingrix (PF) 50 mcg/0.5 mL intramusc ular suspensio n, kit 08/04 completed Not Available Not Available Not Available Flucelvax Quad 60 mcg (15 mcg x 4)/0.5 mL intramusc ular susp 12/27 completed Not Available Not Available Not Available ID NOW COVID-19 Test Kit TEST DIRECTED TODAY 12/27 completed Not Available Not Available Not Available Afluria Quad 60 mcg (15 mcg x 4)/0.5 mL intramusc ular susp. ADM 0.5ML IM UTD 12/27 completed Not Available Not Available Not Available BinaxNOW COVID-19 Ag Self Test kit TEST DIRECTED TODAY 08/08 completed Not Available Not Available Not Available Vitals Date Recorded Body height Heart rate Respiratory rate Oxygen saturation Oxygen saturation in Arterial blood by Pulse oximetry Body mass index (BMI) Body weight Systolic blood pressure Diastolic blood pressure Provider Name and Address Organization Details Last Updated DateTime 1 162.56 cm 66 /min 18 /min 98 % 98 % 23.3 kg/m2 68348.5 6 g 110 mm[Hg] 76 mm[Hg] Ronald José [facility] 1 13:55:18 Date Recorded Body height Body mass index (BMI) Body weight Heart rate Respiratory rate Oxygen saturation Oxygen saturation in Arterial blood by Pulse oximetry Systolic blood pressure Diastolic blood pressure Provider Name and Address Organization Details Last Updated DateTime 2 162.56 cm 22.1 kg/m2 36498.4 2 g 72 /min 16 /min 98 % 98 % 118 mm[Hg] 80 mm[Hg] Amari Gamez [facility] 2 11:12:26 Date Recorded Body height Body mass index (BMI) Body weight Heart rate Oxygen saturation Oxygen saturation in Arterial blood by Pulse oximetry Systolic blood pressure Diastolic blood pressure Provider Name and Address Organization Details Last Updated DateTime 3 162.56 cm 21.1 kg/m2 05642.8 6 g 87 /min 97 % 97 % 118 mm[Hg] 80 mm[Hg] Pearl Riley [facility] 3 11:26:19 Date Recorded Body height Body mass index (BMI) Body weight Heart rate Respiratory rate Oxygen saturation Oxygen saturation in Arterial blood by Pulse oximetry Systolic blood pressure Diastolic blood pressure Provider Name and Address Organization Details Last Updated DateTime 3 162.56 cm 21.3 kg/m2 51172.4 5 g 81 /min 16 /min 98 % 98 % 120 mm[Hg] 78 mm[Hg] Amari Gamez [facility] 3 11:57:19 Date Recorded Body height Body mass index (BMI) Body weight Heart rate Oxygen saturation Oxygen saturation in Arterial blood by Pulse oximetry Systolic blood pressure Diastolic blood pressure Provider Name and Address Organization Details Last Updated DateTime 3 162.56 cm 21.3 kg/m2 18008.4 5 g 84 /min 97 % 97 % 130 mm[Hg] 83 mm[Hg] Rosemarie Whiteuse [facility] 3 14:35:38 Social History Question Answer Notes LastModified by Cadent ion Details LastModified Time Tobacco Smoking Status Never [facility]oker Not [facility]/2020 03:30:18 Do You Or Have You Ever Used E-cigarettes Or Vape? Never Used Electronic Cigarettes [id number] Information not available 04/13/2020 What Was The Date Of Your Most Recent Tobacco Screening? 10/24/2018 [id number] Information not available 04/13/2020 Do You Or Have You Ever Used Smokeless Tobacco? Never Used Smokeless Tobacco [id number] Information not available 04/13/2020 How Much Tobacco Do You Smoke? No [id number] Information not available 04/13/2020 How Many Years Have You Smoked Tobacco? 0 [id number] Information not available 04/13/2020 Sex: Unknown Functional Status None recorded. Mental Status None recorded. Family History Relationship Description Onset Age of this Age Resolved Age Notes LastModified by Organization Details LastModified Time Unspecified Relation Hypertensive disorder [email or web address] Not available 2017 09:47:39 Unspecified Relation Cerebrovascu lar accident hmesto Not available 09:47:52 Unspecified Relation Heart disease hmesto Not available 2017 09:48:02 Brother Myocardial infarction 73 brett Not available 04/11 16:20:40 Brother Congestive heart failure brett Not available 2018 15:36:10 Medical History Condition Response Valvular Heart Disease Y Hyperlipidemia Y Thyroid Disease Y Hypertension Y Gynecological HistoryNo gynecological history recorded. Obstetrics History GPAL:G 0 P 0 0 0 0 Past Encounters Encounter ID Performer Location Encounter Start Date Encounter Closed Date Diagnosis/Indication Diagnosis SNOMED-CT Code Diagnosis ICD10 Code Diagnosis Note [id number] [facility] OFFICE [facility] [place] [id number] 04/11/2018 15:34:27 04/11/2018 16:46:35 Mitral valve prolapse 111488967 I34.1 echo. labs Palpitations 71299428 R0 0.2 Holter Hypertensive disorder 38 414962 I10 Patient's blood pressure is {{relative ly well-contr olled# wel l-controll ed not well-contr olled}} on present medical therapy. Patient is {{tolerati ng, without difficulty ,* having side effects with}} the current medication s. I have {{not made* made the following} } changes to the current regimen. {{ Patient is advised to maintain a blood pressure diary.*}} Cont low Na diet. Hyperlipidemia 43116354 E78.5 will obtain lipidscont diet for now [id number] [facility] OFFICE [facility] [place] [id number] 05/09/2018 14:41:25 05/09/2018 15:59:02 Mitral valve prolapse 562666562 I34.1 echo. showed mvpnormal lv fxn Palpitations 75389568 R0 0.2 Holter unremarkab le Hypertensive disorder 38 908551 I10 Patient's blood pressure is {{well-con trolled no t well-contr olled*}} on present medical therapy. Patient is {{tolerati ng, without difficulty ,* having side effects with}} the current medication s. I have {{not made made the following* }} changes to the current regimen. add Cozaar{{ P atient is advised to maintain a blood pressure diary.*}} Cont low Na diet. Hyperlipidemia 33200651 E78.5 Patient's hyperlipid emia is {{well-con trolled no t well-contr olled*}} on present medical therapy. Patient is {{tolerati ng, without difficulty ,* having side effects with}} the current medication s. I have {{not made made the following* }} changes to the current regimenadd Pitavastat in and Zetia. Cont low cholestero l diet. [id number] [facility] OFFICE [address] [place] [address] 06/20/2018 14:40:07 06/20/2018 15:51:21 Mitral valve prolapse 265326932 I34.1 echo. showed mvpnormal lv fxn Palpitations 63175327 R0 0.2 Holter unremarkab le Hypertensive disorder 38 867990 I10 Patient's blood pressure is {{relative ly well-contr olled# wel l-controll ed not well-contr olled}} on present medical therapy. Patient is {{tolerati ng, without difficulty ,* having side effects with}} the current medication s. I have {{not made made the following* }} changes to the current regimen. add Cozaar{{ P atient is advised to maintain a blood pressure diary.*}} Cont low Na diet. Hyperlipidemia 59635770 E78.5 Patient's hyperlipid emia is {{well-con trolled no t well-contr olled*}} on present medical therapy. Patient is {{tolerati ng, without difficulty ,* having side effects with}} the current medication s. I have {{not made made the following* }} changes [facility] the current regimens[facility] Pitavastat in to Pravastati n due ti insurance. Cont low cholestero l diet. [id number] [facility] OFFICE [address] [place] [address] 10/24/2018 11:34:38 10/24/2018 12:27:09 Mitral valve prolapse 204452014 I34.1 echo. showed mvpnormal lv fxn Palpitations 14628981 R0 0.2 Holter unremarkab le Hypertensive disorder 38 288567 I10 Patient's blood pressure is {{relative ly well-contr olled# wel l-controll ed not well-contr olled}} on present medical therapy. Patient is {{tolerati ng, without difficulty ,* having side effects with}} the current medication s. I have {{not made made the following* }} changes to the current regimen INCREASE Cozaar{{ P atient is advised to maintain a blood pressure diary.*}} Cont low Na diet. Hyperlipidemia 79587969 E78.5 Patient's hyperlipid emia is {{well-con trolled no t well-contr olled*}} on present medical therapy. Patient is {{having side effects with PRAVASTATI N# tolerat ing, without difficulty , having side effects with}} the current medication s. I have {{not made made the following* }} changes to the current regimenswi tch BACK TO Pitavastat in. Cont low cholestero l diet. Family his tory of coronary arteriosclerosis 999637965 Z82.49 Chest pain 87660639 R07. 9 Patient presents with {{chest* a rm back ja w}} pain {{typical of angina wit h atypical features*} }. Given the history, exam findings and {{high* in termediate low}} cardiac risk factors, I {{feel* do not feel}} additional investigat ion is warranted. I have made arrangemen ts in the near future for {{an exercise stress echocardio gram to evaluate for any ischemia, structural heart disease, or exercise induced arrythmia an exercise stress nuclear test* an exercise stress nuclear test (stress echo not possible due to COPD or obesity) a n exercise stress nuclear test and an echocardio gram to evaluate for any ischemia or structural heart disease a pharmacolo gic stress nuclear test due to reduced functional capacity or conduction abnormalit y cardiac catheteriz ation an echocardio gram to evaluate left ventricula r function and any structural heart disease or valvular abnormalit y}}. The procedure was discussed with the patient, and risks, benefits, and alternativ e options were explained. {{ The patient was informed about heart catheteriz ation and interventi onal procedures and agrees to proceed.}} Appropriat e labwork {{has has not*}} been performed recently, therefore I {{have not have*} } made arrangemen ts for further testing. I have asked the patient to curtail exercise and activities until our investigat ion is complete. I have {{made no made the following* }} adjustment s to the present medical regimen. {{ Patient has been started on daily aspirin.}} {{ Patient has been given a prescripti on for sublingual nitroglyce rin.}} [id number] [facility] OFFICE [address] [place] [address] 01/02/2019 17:13:02 01/02/2019 17:53:00 Mitral valve prolapse 033900614 I34.1 echo. showed mvpnormal lv fxn Palpitations 50903924 R0 0.2 Holter unremarkab le Hypertensive disorder 38 295502 I10 Patient's blood pressure is {{well-con trolled* n ot well-contr olled}} on present medical therapy. Patient is {{tolerati ng, without difficulty ,* having side effects with}} the current medication s. I have {{not made* made the following} } changes to the current regimen {{ Patient is advised to maintain a blood pressure diary.*}} Cont low Na diet. Hyperlipidemia 64748402 E78.5 Patient's hyperlipid emia is {{well-con trolled no t well-contr olled*}} on present medical therapy. Patient is {{having side effects with statins # tolerati ng, without difficulty , having side effects with}} the current medication s. I have {{not made made the following* }} changes to the current regimencon t Pitavastat in. Cont low cholestero l diet. Family his tory of coronary arteriosclerosis 500765428 Z82.49 Chest pain 52072104 R07. 9 stress test negativeex cellent exercise tolerancec [place] [id number] [facility] OFFICE [facility] [place] [address] 03/27/2019 11:30:54 03/27/2019 21:42:43 Mitral valve prolapse 224154284 I34.1 echo. showed mvpnormal lv fxn Palpitations 99473682 R0 0.2 Holter unremarkab le Hypertensive disorder 38 437890 I10 Patient's blood pressure is {{well-con trolled* n ot well-contr olled}} on present medical therapy. Patient is {{tolerati ng, without difficulty ,* having side effects with}} the current medication s. I have {{not made* made the following} } changes to the current regimen {{ Patient is advised to maintain a blood pressure diary.*}} Cont low Na diet. Hyperlipidemia 97580964 E78.5 Patient's hyperlipid emia is {{well-con trolled no t well-contr olled*}} on present medical therapy. Patient is {{having side effects with statins # tolerati ng, without difficulty , having side effects with}} the current medication s. I have {{not made made the following* }} changes to the current regimencon t Pitavastat in. Cont low cholestero l diet. Family his tory of coronary arteriosclerosis 653056947 Z82.49 Chest pain 00032503 R07. 9 stress test negativeex cellent exercise tolerancec [place] [id number] [facility] OFFICE [address] [place] [address] 08/04/2019 11:10:13 08/04/2019 12:13:03 Mitral valve prolapse 573732369 I34.1 echo. showed mvpnormal lv fxn Palpitations 84190005 R0 0.2 Holter unremarkab [facility] check labs, pt denies thyroid problem Hypertensive disorder 38 389359 I10 Patient's blood pressure is {{relative ly well-contr olled# wel l-controll ed not well-contr olled}} on present medical therapy. Patient is {{tolerati ng, without difficulty ,* having side effects with}} the current medication s. I have {{not made* made the following} } changes to the current regimen {{ Patient is advised to maintain a blood pressure diary.*}} Cont low Na diet. BP diary Hyperlipidemia 14221490 E78.5 Patient's hyperlipid emia is {{well-con trolled* n ot well-contr olled}} on present medical therapy. Patient is {{tolerati ng, without difficulty ,* having side effects with}} the current medication s. I have {{not made made the following* }} changes to the current regimen switched to Atorvastat in since pt can not afford Pitavastat in. Cont low cholestero l diet. Family his tory of coronary arteriosclerosis 088922381 Z82.49 Chest pain 46972403 R07. 9 Patient presents with {{chest* a rm back ja w}} pain {{typical of angina wit h atypical features*} }. Given the history, exam findings and {{high int ermediate * low}} cardiac risk factors, I {{feel* do not feel}} additional investigat ion is warranted. I have made arrangemen ts in the near future for {{coronary CTA# an exercise stress echocardio gram to evaluate for any ischemia, structural heart disease, or exercise induced arrythmia an exercise stress nuclear test an exercise stress nuclear test (stress echo not possible due to COPD or obesity) a n exercise stress nuclear test and an echocardio gram to evaluate for any ischemia or structural heart disease a pharmacolo gic stress nuclear test due to reduced functional capacity or conduction abnormalit y cardiac catheteriz ation an echocardio gram to evaluate left ventricula r function and any structural heart disease or valvular abnormalit y}}. The procedure was discussed with the patient, and risks, benefits, and alternativ e options were explained. {{ The patient was informed about heart catheteriz ation and interventi onal procedures and agrees to proceed.}} Appropriat e labwork {{has has not*}} been performed recently, therefore I {{have not have*} } made arrangemen ts for further testing. I have asked the patient to curtail exercise and activities until our investigat ion is complete. I have {{made no made the following* }} adjustment s to the present medical regimen. {{ Patient has been started on daily aspirin.*} } {{ Patient has been given a prescripti on for sublingual nitroglyce rin.}} [id number] [facility] OFFICE [address] [place] [address] 09/22/2019 11:05:24 09/22/2019 11:58:08 Mitral valve prolapse [id number] I34.1 last ECHO showed mvpnormal lv fxnstart Mg supplement ationrepea t ECHO Palpitations [id number] R0 0.2 rareHolter unremarkab lelabs look good, pt denies thyroid problem Hypertensive disorder 38 315554 I10 Patient's blood pressure is {{relative ly well-contr olled# wel l-controll ed not well-contr olled}} on present medical therapy. Patient is {{tolerati ng, without difficulty ,* having side effects with}} the current medication s. I have {{not made* made the following} } changes to the current regimen {{ Patient is advised to maintain a blood pressure diary.*}} Cont low Na diet. BP diary Hyperlipidemia 26230000 E78.5 Patient's hyperlipid emia is {{relative ly well-contr olled# wel l-controll ed not well-contr olled}} on present medical therapy. Patient is {{tolerati ng, without difficulty ,* having side effects with}} the current medication s. I have {{not made made the following* }} changes to the current regimen restart Pravastati n at lower dose.Cont Zetia and low cholestero l diet. Family his tory of coronary arteriosclerosis [id number] Z82.49 Chest pain [id number] R07. 9 symptoms improved.R ecent coronary CTA negative.S tress test from 2019 showed no ischemia.C ont medical management [place]. [address] [facility] OFFICE [address] [place] [address] 01/01/2020 10:37:10 01/01/2020 11:21:34 Mitral valve prolapse [id number] I34.1 ECHO showed mvpnormal lv fxncont Mg supplement ation Palpitations 91102147 R0 0.2 rareHolter unremarkab lelabs look good, pt denies thyroid problem Hypertensive disorder 38 765086 I10 Patient's blood pressure is {{relative ly well-contr olled# wel l-controll ed not well-contr olled}} on present medical therapy. Patient is {{tolerati ng, without difficulty ,* having side effects with}} the current medication s. I have {{not made* made the following} } changes to the current regimen {{ Patient is advised to maintain a blood pressure diary.*}} Cont low Na diet. BP diary Hyperlipidemia 50511554 E78.5 Patient's hyperlipid emia is {{relative ly well-contr olled# wel l-controll ed not well-contr olled}} on present medical therapy. Patient is {{tolerati ng, without difficulty ,* having side effects with}} the current medication s. I have {{not made made the following* }} changes to the current regimen restart Pravastati n at lower dose.Cont Zetia and low cholestero l diet. Family his tory of coronary arteriosclerosis [id number] Z82.49 Chest pain 52649710 R07. 9 symptoms improved.R ecent coronary CTA negative.S tress test from 2019 showed no ischemia.C ont medical management and risk factor [place]ati [place]. [address] [address] [place] OFFICE [address] [place] [address] 07/01/2020 11:01:10 07/01/2020 14:09:46 Mitral valve prolapse [id number] I34.1 ECHO showed mvpnormal lv fxncont Mg supplement ation Palpitations 11651037 R0 0.2 rareHolter unremarkab lelabs look good, pt denies thyroid problem Hypertensive disorder 38 072333 I10 Patient's blood pressure is {{relative ly well-contr olled# wel l-controll ed not well-contr olled}} on present medical therapy. Patient is {{tolerati ng, without difficulty ,* having side effects with}} the current medication s. I have {{not made* made the following} } changes to the current regimen {{ Patient is advised to maintain a blood pressure diary.*}} Cont low Na diet. BP diary Hyperlipidemia 99086657 E78.5 Patient's hyperlipid emia is {{relative ly well-contr olled# wel l-controll ed not well-contr olled}} on present medical therapy. Patient is {{tolerati ng, without difficulty ,* having side effects with}} the current medication s. I have {{not made made the following* }} changes to the current regimen restart Pravastati n at lower dose.Cont Zetia and low cholestero l diet. Family his tory of coronary arteriosclerosis 184223770 Z82.49 Chest pain 21940604 R07. 9 symptoms improved.R ecent coronary CTA negative.S tress test from 2019 showed no ischemia.C ont medical management and risk [place]ificati [place]. [address] Ronald Thomas Office [address] [place] [address] 07/08/2020 14:02:15 07/08/2020 14:56:51 Mitral valve prolapse [id number] I34.1 Normal lv fxn. No significan t MR Palpitations 19059186 R0 0.2 rareHolter unremarkab lelabs look good, pt denies thyroid problem Hypertensive disorder 38 721391 I10 well controlled Hyperlipidemia 10716403 E78.5 LDL 71 Family his tory of coronary arteriosclerosis 310037260 Z82.49 Chest pain 30414154 R07. 9 symptoms improved. Pain is atypical for angina. Negative work up with Nuc stress and cardiac CTCont medical management and [place]. [address] Ronald José [place] OFFICE [address] [place] [address] 01/03/2021 13:41:34 01/04/2021 08:51:55 Chest pain 52788667 R07.9 resolved since started on PPIstress test negative for ischemia Mitral valve prolapse 40 8187700 I34.1 Normal lv fxn. No significan t MR Palpitations 62416818 R0 0.2 resolvedHo lter unremarkab le Hypertensive disorder 38 784706 I10 well controlled Hyperlipidemia 37124136 E78.5 LDL 71 Family his tory of coronary arteriosclerosis 413571680 Z82.49 95[address] Bg Biswas MD [place] OFFICE [address] [place] [address] 12/27/2021 10:50:03 12/27/2021 12:03:17 Chest pain 37888247 R07.9 resolved since started on PPIstress test negative for ischemia Mitral valve prolapse 40 9129524 I34.1 Normal lv fxn. No significan t MR Palpitations 72912182 R0 0.2 resolvedHo lter unremarkab le Hypertensive disorder 38 383606 I10 well controlled Hyperlipidemia 05575643 E78.5 LDL 71disconti nue pravastati n 40 mgdisconti nue zetia 10 mg start crestor 10 mg daily and check her lipid panel in 3 months Family his tory of coronary arteriosclerosis 333902652 Z82.49 [address] [address] miguel [facility] [place] OFFICE [address] [place] [address] 06/27/2022 10:39:59 06/27/2022 12:06:52 Chest pain 60584571 R07.9 will do stress echostress test negative for ischemia 2019CTA without significan t CAD Mitral valve prolapse 40 4868560 I34.1 Normal lv fxn. No significan t MR Palpitations 37266518 R0 0.2 resolvedHo lter unremarkab le Hypertensive disorder 38 795007 I10 well controlled Hyperlipidemia 74081683 E78.5 LDL 71disconti nue pravastati n 40 mgdisconti nue zetia 10 mgdisc crestor due to mental fuguewill check lipid panel without any medication Family his tory of coronary arteriosclerosis 469095563 Z82.49 Carotid bruit 263780937 R09.89 will do ultrasound [id number] Bg Biswas MD [place] OFFICE [facility] [place] [address] 08/08/2022 11:20:27 08/08/2022 12:20:22 Chest pain 72504612 R07.9 will do stress echostress test negative for ischemia 2019CTA without significan t CAD Mitral valve prolapse 40 6603493 I34.1 Normal lv fxn. No significan t MR Palpitations 85819266 R0 0.2 Occasional , due to MVPHolter unremarkab le Hypertensive disorder 38 609297 I10 well controlled Hyperlipidemia 63996679 E78.5 LDL 71disconti nue pravastati n 40 mgdisconti nue zetia 10 mgdisc crestor due to mental fuguewill check lipid panel without any medication Family his tory of coronary arteriosclerosis 162635533 Z82.49 [address]268 Bg Biswas MD [place] OFFICE [facility] [place] [address] 02/06/2023 14:05:00 02/06/2023 14:50:25 Palpitations 32373782 R00.2 Occasional , due to MVPHolter unremarkab le Hypertensive disorder 38 741904 I10 well controlled Hyperlipidemia 48190791 E78.5 LDL 71disconti nue pravastati n 40 mgdisc crestor due to mental fuguewill check lipid panel without any medication Health Concerns Section Related Observation LastModified by Organization Detai ls LastModified Time None Recorded Concern Status LastModified by Organization Details LastModified Time None Recorded Advance Directives Directive None Recorded Payers Encounter Date Sequence Insurance Name Policy Number Policy Zaidi Covered Member ID Zaidi Member ID Guarantor Name 01/03/2021 1 [place] [id number] Rama Rodriguez [id number] 12/27/2021 1 [place] [id number] Rama Rodriguez [id number] 06/27/2022 1 [place] R[place] Rodriguez [id number] 1 08/08/2022 1 [place] R[place] Rodriguez [id number] 1 02/06/2023 1 [place] Rama Rodriguez [id number] 1 Notes Date Note Type Note Provider Name and Address Organization Details Recorded Time 01/03/2021 text/html 01/03/21CC : Car diac follow up65 year-old White Female with h/o Hypertension, Hyperlipidemia , diastolic dysfunction, MVP , FHx Cad is here for follow up . She was last seen in clinic on 07/08/20 . since then she has been doing well. She was started on PPI and since then her chest pain has completely resolved.She denies ER visits and hospitalizations since she was last seen. No known history of coronary artery disease. No history of previous myocardial infarction. No history of heart failure. No known valvular heart disease. No known arrhythmia. Previously Pt was last seen 1 week ago on 07/01/2020. at that time she was told her EKG looks different from normal and since then she has been very anxious and started complaining of chest pain with ER visit yesterday for that. Negative work up in ER. On my review of her EKG it appears unchanged compared to 2018. She had negative stress test in 2019 and also had cardiac CT in 2020 which was suboptimal study but grossly normal Since then feels fine, denies CP, SOB or palpitations. Her BP runs about 122/74 States that her BP today was 115/72 and this is how it runs usually *Had carotid US done in 09/12/19 showed Antegrade flow noted in both vertebral arteries. Very mild bilateral internal carotid artery stenosis with less than 15% diameter stenosis. *Had cardiac CTA which was negative. She states that started to drink more tea recently. Previously noticed to have eipisodes of dull chest discomfort associated with some palpitations. At that time her BP was higher that it used to be as well. She had Holter in the past which was negative. 08-07-2019 08/07/19 BMP: NA:141, K:4.1, CL:105, C02:30, GLU:86,BUN:N/A. CR:0.78pid panel, blood 08-07-2019 08/07/19 LIPID- TC:191, TR: 68, HDL: 71, LDL: 105. Previously stated that feels much better and her BP is well controlled. She started diet and feels good with that Her insurance denied pitavastatin so she stopped it. used to take Pravastatin before. Denies side effects from statin. pt was noted that her BP started to be elevated (170/100) which is highest ever. she had bp machine however her recordings are lower than in the office she is anxious too. she did some research on Dd. she does not like to take pills. She finally agreed to take meds and is fine with that. Her anxiety decreased Pt does had musculosketal pain with Pravastatin. when she was on Livalo she was asymptomatic. Unfortunately it is not covered by her insurance and due to estevez she stopped it few weeks ago. Pravastatin 80 she usw=ed to take before and she stopped it in 2018. Previously pt stated that her BP was going up for the lest 2 yrs. it used to be 120/80. even though she lost weight. Regarding cardiac problems pt was diagnosed with MVP before 2013. She had skipped beats and had Holter before. *Had ECHO done in 04/24/18 showed normal global systolic function, EF 50-55% , grade I diastolic dysfunction , mild aortic regurgitation,mitral valve prolapse is present Sometimes feels pressure - like chest discomfort. Not related to physical activity. Is pretty active. Results from this visit, or from the past: CMP, serum or plasma [id number] panel, blood [id number] w/ diff 07-07-2020 08/07/19 BMP: NA:141, K:4.1, CL:105, C02:30, GLU:86,BUN:N/A. CR:0.78 08/07/19 LIPID- TC:191, TR: 68, HDL: 71, LDL: 105. 01/09/19: CMP: Glucose 89,BUN 15,Creati 0.77,Na 141,K 4.2,Cl 104,CO2 29,Ca 10.2,Alkaline phosphatase 57 lipid panel, blood 01-09-2019 01/09/19: TC 165 ,TG 63 , HDL 75 ,LDL 76, 04/18/18 FLP: TC 245, TR 80, HDL 77, LDL 150 M.3 TSH: 2.96 BMP: NA 139, GL 83, B 12, CR 0.76, K 3.9, CH 102, CO2 26 04/18/18: Na 139 ,K 3.9 ,CL 102,CO2 26, GLU 83 , BUN 12, CR 0.76, .06/15/14 : TC 200. TG 72. LDL 95. HDL 91. AST 24. ALT 20 . EKG 07/01/20 : NSR, poor r progression, NSST changes .EKG 08/04/19 : NSR, NSST changes . EKG 10/24/18 : NSR, NSST changes . EKG 06/20/18 : NSR, NSST changes . EKG (04/11/18): NSR, NSST changes ECHO 12/30/19:LV chamber size is normal,LV wall thickness is normal,there is normal global systolic function and contractility,EF 55-60%,Normal left atrial pressure with grade I diastolic dysfunction,the mitral valve leaflet is mildly thickened,there is trace tricuspid trgurgitation. 09/12/2019 CAROTID: Antegrade flow noted in both vertebral arteries. Very mild bilateral internal carotid artery stenosis with less than 15% diameter stenosis. Had negative stress test done in 12/16/18 with normal LV systolic function , EF 65% . ECHO 12/30/19:LV chamber size is normal,LV wall thickness is normal,there is normal global systolic function and contractility,EF 55-60%,Normal left atrial pressure with grade I diastolic dysfunction,the mitral valve leaflet is mildly thickened,there is trace tricuspid trgurgitation. ECHO 04/24/18: LV chamber size is normal,LV wall thickness is normal,there is normal global systolic function and contactility,EF 50-55%,Normal left atrial pressure with grade I diastolic dysfunction,there is mild aortic regurgitation,mitral valve prolapse is present 08/25/2019 ; CTA Chest : No significant coronary artery Disease Normal ventricular function EF is 58% Suboptimal Study LAD medium size ,turtuous no significant disease LCX not well visualized in mild to distal segment no disease in proximal segment Ramus small on disease RCA large with no significant disease US DOPPLER: 08/03/17 Normal upper extremity waveforms indicating no significant arterial occulusive disease. Slight decrease in pressure on the right side relative to the left, which may not be clinically significant. 07/07/2020 ; Chest X-Ray : No acute cardiopulmonary Disease treadmill nuclear stress test (PROC) TDM: Negative stress test for ischemia. Normal LV systolic function. Artifact noted. No previous study to compare. LVEF 65%. us arterial 08/03/17Normal upper extremity waveforms indicating no significant arterial occulusive disease. Slight decrease in pressure on the right side relative to the left, which may not be clinically significant. Ronald José [place], [place] - [facility] 01/03/2021 15:33:59 12/27/2021 text/html 12/27/20CC : [facility] follow up66 year-old White Female with h/o Hypertension, Hyperlipidemia , diastolic dysfunction, MVP , FHx Cad is here for 1 year follow up. She was last seen in the clinic on 01/03/21 , since then she is doing well. She denied chest pain or dyspnea on exertion. Her last LDL level was well at 71 done 2020. She was taking pravastatin 40 mg daily and zetia 10. She stopped her pravastatin 2 months ago because her lipid level was good at the time. Her blood pressure is well controlled. She denies ER visits and hospitalizations since she was last seen. Today reports: PT has no CC at this time. PT has questions about pravasatin.Denies chest pain.Denies shortness of breath at rest. Has mild dyspnea on exertion.No orthopnea. No PNDs.Admits heart palpitations.Admits dizziness. Denies syncope or near syncope.No ankle or leg edema.No major bleeding events.No reported side effects from medications. Taking medications as prescribed with no missed doses.Denies snoring, daytime somnolence and AM headache.*Last LDL was 71 done on 07/06/20 .Pt takes pravastatin 40 mg. Previouslyshe was told her EKG looks different from normal and since then she has been very anxious and started complaining of chest pain with ER visit yesterday for that. Since then feels fine, denies CP, SOB or palpitations. States that her BP today was 115/72 and this is how it runs usually *Had carotid US done in 09/12/19 showed Antegrade flow noted in both vertebral arteries. Very mild bilateral internal carotid artery stenosis with less than 15% diameter stenosis. *Had cardiac CTA which was negative. She states that started to drink more tea recently. Previously noticed to have eipisodes of dull chest discomfort associated with some palpitations. At that time her BP was higher that it used to be as well. She had Holter in the past which was negative. Previously stated that feels much better and her BP is well controlled. She started diet and feels good with that Her insurance denied pitavastatin so she stopped it. used to take Pravastatin before. Denies side effects from statin. pt was noted that her BP started to be elevated (170/100) which is highest ever. she had bp machine however her recordings are lower than in the office she is anxious too. she did some research on Dd. she does not like to take pills. She finally agreed to take meds and is fine with that. Her anxiety decreased Pt does had musculosketal pain with Pravastatin. when she was on Livalo she was asymptomatic. Unfortunately it is not covered by her insurance and due to estevez she stopped it few weeks ago. Pravastatin 80 she usw=ed to take before and she stopped it in 2019. Regarding cardiac problems pt was diagnosed with MVP before 2013. *Had ECHO done in 04/24/18 showed normal global systolic function, EF 50-55% , grade I diastolic dysfunction , mild aortic regurgitation,mitral valve prolapse is present Results from this visit, or from the past: CMP, serum or plasma [id number] panel, blood [id number] w/ diff 07-07-2020 08/07/19 BMP: NA:141, K:4.1, CL:105, C02:30, GLU:86,BUN:N/A. CR:0.78 08/07/19 LIPID- TC:191, TR: 68, HDL: 71, LDL: 105. 01/09/19: CMP: Glucose 89,BUN 15,Creati 0.77,Na 141,K 4.2,Cl 104,CO2 29,Ca 10.2,Alkaline phosphatase 57 lipid panel, blood 01-09-2019 01/09/19: TC 165 ,TG 63 , HDL 75 ,LDL 76, 04/18/18 FLP: TC 245, TR 80, HDL 77, LDL 150 M.3 TSH: 2.96 BMP: NA 139, GL 83, B 12, CR 0.76, K 3.9, CH 102, CO2 26 04/18/18: Na 139 ,K 3.9 ,CL 102,CO2 26, GLU 83 , BUN 12, CR 0.76, .06/15/14 : TC 200. TG 72. LDL 95. HDL 91. AST 24. ALT 20 . EKG 07/01/20 : NSR, poor r progression, NSST changes .EKG 08/04/19 : NSR, NSST changes . EKG 10/24/18 : NSR, NSST changes . EKG 06/20/18 : NSR, NSST changes . EKG (04/11/18): NSR, NSST changes ECHO 12/30/19:LV chamber size is normal,LV wall thickness is normal,there is normal global systolic function and contractility,EF 55-60%,Normal left atrial pressure with grade I diastolic dysfunction,the mitral valve leaflet is mildly thickened,there is trace tricuspid trgurgitation. 09/12/2019 CAROTID: Antegrade flow noted in both vertebral arteries. Very mild bilateral internal carotid artery stenosis with less than 15% diameter stenosis. Had negative stress test done in 12/16/18 with normal LV systolic function , EF 65% . ECHO 12/30/19:LV chamber size is normal,LV wall thickness is normal,there is normal global systolic function and contractility,EF 55-60%,Normal left atrial pressure with grade I diastolic dysfunction,the mitral valve leaflet is mildly thickened,there is trace tricuspid trgurgitation. ECHO 04/24/18: LV chamber size is normal,LV wall thickness is normal,there is normal global systolic function and contactility,EF 50-55%,Normal left atrial pressure with grade I diastolic dysfunction,there is mild aortic regurgitation,mitral valve prolapse is present 08/25/2019 ; CTA Chest : No significant coronary artery Disease Normal ventricular function EF is 58% Suboptimal Study LAD medium size ,turtuous no significant disease LCX not well visualized in mild to distal segment no disease in proximal segment Ramus small on disease RCA large with no significant disease US DOPPLER: 08/03/17 Normal upper extremity waveforms indicating no significant arterial occulusive disease. Slight decrease in pressure on the right side relative to the left, which may not be clinically significant. 07/07/2020 ; Chest X-Ray : No acute cardiopulmonary Disease treadmill nuclear stress test (PROC) TDM: Negative stress test for ischemia. Normal LV systolic function. Artifact noted. No previous study to compare. LVEF 65%. us arterial 08/03/17Normal upper extremity waveforms indicating no significant arterial occulusive disease. Slight decrease in pressure on the right side relative to the left, which may not be clinically significant. Bg Biswas MD [address] [place], [address], [facility] 02/19/2022 20:25:02 06/27/2022 text/html 12/27/20CC : Car diac follow up chest pain and dyspnea on ocradlmy37 year-old White Female with h/o Hypertension, Hyperlipidemia , diastolic dysfunction, MVP , FHx Cad is here for 6 month follow up. She was last seen in the clinic on 12/27/21, since then she is doing well. She repoting occasional chest pain but denied dyspnea on exertion. She is walking 1 mile daily. She is describing mental fugue with taking crestor and would like to stay without medicaton. *Last LDL was 71 done on 07/06/20. Pt not taking. She denies ER visits and hospitalizations since she was last seen. Today reports:Occasional chest pain.Denies shortness of breath at rest. Has mild dyspnea on exertion.No orthopnea. No PNDs.Denies heart palpitations.Denies dizziness. Denies syncope or near syncope.No ankle or leg edema.No major bleeding events.No reported side effects from medications. Taking medications as prescribed with no missed doses.Denies snoring, daytime somnolence and AM headache.*Last LDL was 71 done on 07/06/20. Pt takes rosuvastatin 10 mg. Previously:she was told her EKG looks different from normal and since then she has been very anxious and started complaining of chest pain with ER visit yesterday for that. *Had carotid US done in 09/12/19 showed Antegrade flow noted in both vertebral arteries. Very mild bilateral internal carotid artery stenosis with less than 15% diameter stenosis. *Had cardiac CTA which was negative. She states that started to drink more tea recently. Previously noticed to have eipisodes of dull chest discomfort associated with some palpitations. At that time her BP was higher that it used to be as well. She had Holter in the past which was negative. Previously stated that feels much better and her BP is well controlled. She started diet and feels good with that pt was noted that her BP started to be elevated (170/100) which is highest ever. she is anxious too. she did some research on Dd. she does not like to take pills. She finally agreed to take meds and is fine with that. Her anxiety decreased Pt does had musculosketal pain with Pravastatin. when she was on Livalo she was asymptomatic. Unfortunately it is not covered by her insurance and due to estevez she stopped it few weeks ago. Pravastatin 80 she usw=ed to take before and she stopped it in 2019. Regarding cardiac problems pt was diagnosed with MVP before 2013. *Had ECHO done in 04/24/18 showed normal global systolic function, EF 50-55% , grade I diastolic dysfunction , mild aortic regurgitation,mitral valve prolapse is present Results from this visit, or from the past:CMP, serum or plasma [id number] panel, blood [id number] w/ diff 07-07-2020 08/07/19 BMP: NA:141, K:4.1, CL:105, C02:30, GLU:86,BUN:N/A. CR:0. LIPID- TC:191, TR: 68, HDL: 71, LDL: 105.01/09/19: CMP: Glucose 89,BUN 15,Creati 0.77,Na 141,K 4.2,Cl 104,CO2 29,Ca 10.2,Alkaline phosphatase 57 lipid panel, blood 01-09-2019 01/09/19: TC 165 ,TG 63 , HDL 75 ,LDL 76,04/18/18 FLP: TC 245, TR 80, HDL 77, LDL 150 M.3 TSH: 2.96 BMP: NA 139, GL 83, B 12, CR 0.76, K 3.9, CH 102, CO2 : Na 139 ,K 3.9 ,CL 102,CO2 26, GLU 83 , BUN 12, CR 0.76,06/15/14 : TC 200. TG 72. LDL 95. HDL 91. AST 24. ALT 20 .EKG 07/01/20 : NSR, poor r progression, NSST changes .EKG 08/04/19 : NSR, NSST changes .EKG 10/24/18 : NSR, NSST changes .EKG 06/20/18 : NSR, NSST changes .EKG (04/11/18): NSR, NSST changesECHO 12/30/19:LV chamber size is normal,LV wall thickness is normal,there is normal global systolic function and contractility,EF 55-60%,Normal left atrial pressure with grade I diastolic dysfunction,the mitral valve leaflet is mildly thickened,there is trace tricuspid trgurgitation.09/12/19 20 CAROTID: Antegrade flow noted in both vertebral arteries. Very mild bilateral internal carotid artery stenosis with less than 15% diameter stenosis.Had negative stress test done in 12/16/18 with normal LV systolic function , EF 65% . ECHO 12/30/19:LV chamber size is normal,LV wall thickness is normal,there is normal global systolic function and contractility,EF 55-60%,Normal left atrial pressure with grade I diastolic dysfunction,the mitral valve leaflet is mildly thickened,there is trace tricuspid trgurgitation. ECHO 04/24/18: LV chamber size is normal,LV wall thickness is normal,there is normal global systolic function and contactility,EF 50-55%,Normal left atrial pressure with grade I diastolic dysfunction,there is mild aortic regurgitation,mitral valve prolapse is present 08/25/2019 ; CTA Chest : No significant coronary artery Disease Normal ventricular function EF is 58% Suboptimal Study LAD medium size ,turtuous no significant disease LCX not well visualized in mild to distal segment no disease in proximal segment Ramus small on disease RCA large with no significant disease US DOPPLER: 08/03/17 Normal upper extremity waveforms indicating no significant arterial occulusive disease. Slight decrease in pressure on the right side relative to the left, which may not be clinically significant. 07/07/2020 ; Chest X-Ray : No acute cardiopulmonary Disease treadmill nuclear stress test (PROC) TDM: Negative stress test for ischemia. Normal LV systolic function. Artifact noted. No previous study to compare. LVEF 65%. us arterial 08/03/17Normal upper extremity waveforms indicating no significant arterial occulusive disease. Slight decrease in pressure on the right side relative to the left, which may not be clinically significant. [facility] 06/27/2022 12:04:07 08/08/2022 text/html 08/08/22CC : Car diac follow up, [id number] year-old White Female with h/o Hypertension, Hyperlipidemia , diastolic dysfunction, MVP , FHx Cad is here for 3 month follow up with SE results. She was last seen in the clinic on 06/27/22, since then she had negative SE on 07/25/22.She denies ER visits and hospitalizations since she was last seen. Today reports:Denies chest pain.Denies shortness of breath at rest. Has mild dyspnea on exertion.No orthopnea. No PNDs.Denies heart palpitations.Denies dizziness. Denies syncope or near syncope.No ankle or leg edema.No major bleeding events.No reported side effects from medications. Taking medications as prescribed with no missed doses.Denies snoring, daytime somnolence and AM headache.*Last LDL was 126 done on 07/11/22.Pt currently dose not takes any statins (She is describing mental fugue with taking crestor and would like to stay without medicaton), She started diet and feels good with that. *Had negative SE on 07/25/22. *07/12/2022 CMP-NA 136 K 3.8 CR 0.70 GL 96 CA 9.1 CK-65TRIG 91 CHOL 266 Direct LDL 126 HDL 74 *Had carotid US done in 09/12/19 showed Antegrade flow noted in both vertebral arteries. Very mild bilateral internal carotid artery stenosis with less than 15% diameter stenosis. *Had cardiac CTA which was negative. *She had Holter in the past which was negative. *Had ECHO done in 04/24/18 showed normal global systolic function, EF 50-55% , grade I diastolic dysfunction , mild aortic regurgitation,mitral valve prolapse is present Results from this visit, or from the past:CMP, serum or plasma [id number] panel, blood [id number] w/ diff 07-07-2020 08/07/19 BMP: NA:141, K:4.1, CL:105, C02:30, GLU:86,BUN:N/A. CR:0. LIPID- TC:191, TR: 68, HDL: 71, LDL: 105.01/09/19: CMP: Glucose 89,BUN 15,Creati 0.77,Na 141,K 4.2,Cl 104,CO2 29,Ca 10.2,Alkaline phosphatase 57 lipid panel, blood 01-09-2019 01/09/19: TC 165 ,TG 63 , HDL 75 ,LDL 76,04/18/18 FLP: TC 245, TR 80, HDL 77, LDL 150 M.3 TSH: 2.96 BMP: NA 139, GL 83, B 12, CR 0.76, K 3.9, CH 102, CO2 : Na 139 ,K 3.9 ,CL 102,CO2 26, GLU 83 , BUN 12, CR 0.76,06/15/14 : TC 200. TG 72. LDL 95. HDL 91. AST 24. ALT 20 .EKG 07/01/20 : NSR, poor r progression, NSST changes .EKG 08/04/19 : NSR, NSST changes .EKG 10/24/18 : NSR, NSST changes .EKG 06/20/18 : NSR, NSST changes .EKG (04/11/18): NSR, NSST changesECHO 12/30/19:LV chamber size is normal,LV wall thickness is normal,there is normal global systolic function and contractility,EF 55-60%,Normal left atrial pressure with grade I diastolic dysfunction,the mitral valve leaflet is mildly thickened,there is trace tricuspid trgurgitation.09/12/19 CAROTID: Antegrade flow noted in both vertebral arteries. Very mild bilateral internal carotid artery stenosis with less than 15% diameter stenosis.Had negative stress test done in 12/16/18 with normal LV systolic function , EF 65% . ECHO 07/21/20:LV chamber size is normal,LV wall thickness is normal,there is normal global systolic function and contractility,EF 55-60%,Normal left atrial pressure with grade I diastolic dysfunction,the mitral valve leaflet is mildly thickened,there is trace tricuspid trgurgitation. ECHO 04/24/18: LV chamber size is normal,LV wall thickness is normal,there is normal global systolic function and contactility,EF 50-55%,Normal left atrial pressure with grade I diastolic dysfunction,there is mild aortic regurgitation,mitral valve prolapse is present 08/25/2019 ; CTA Chest : No significant coronary artery Disease Normal ventricular function EF is 58% Suboptimal Study LAD medium size ,turtuous no significant disease LCX not well visualized in mild to distal segment no disease in proximal segment Ramus small on disease RCA large with no significant disease US DOPPLER: 08/03/17 Normal upper extremity waveforms indicating no significant arterial occulusive disease. Slight decrease in pressure on the right side relative to the left, which may not be clinically significant. 07/07/2020 ; Chest X-Ray : No acute cardiopulmonary Disease treadmill nuclear stress test (PROC) TDM: Negative stress test for ischemia. Normal LV systolic function. Artifact noted. No previous study to compare. LVEF 65%. us arterial 08/03/17Normal upper extremity waveforms indicating no significant arterial occulusive disease. Slight decrease in pressure on the right side relative to the left, which may not be clinically significant. Bg Biswas MD [address] [place], [address], [facility] 08/08/2022 12:18:07 02/06/2023 text/html 02/06/23CC : Car diac follow up, dyspnea on [id number] year-old White Female with h/o Hypertension, Hyperlipidemia , diastolic dysfunction, MVP , FHx Cad is here for 6 month follow up. She was last seen in the clinic on 06/27/22, since then she IS DOING WELLShe denies ER visits and hospitalizations since she was last seen. Denies chest pain.Denies shortness of breath at rest. Has mild dyspnea on exertion.No orthopnea. No PNDs.Denies heart palpitations.Denies dizziness. Denies syncope or near syncope.No ankle or leg edema.No major bleeding events.No reported side effects from medications. Taking medications as prescribed with no missed doses.Denies snoring, daytime somnolence and AM headache.*Last LDL was 126 done on 07/11/22.Pt currently dose not takes any statins (She is describing mental fugue with taking crestor and would like to stay without medicaton), She started diet and feels good with that. Previously: *Had negative SE on 07/25/22. *07/12/2022 CMP-NA 136 K 3.8 CR 0.70 GL 96 CA 9.1 CK-65TRIG 91 CHOL 266 Direct LDL 126 HDL 74 *Had carotid US done in 09/12/19 showed Antegrade flow noted in both vertebral arteries. Very mild bilateral internal carotid artery stenosis with less than 15% diameter stenosis. *Had cardiac CTA which was negative. *She had Holter in the past which was negative. *Had ECHO done in 04/24/18 showed normal global systolic function, EF 50-55% , grade I diastolic dysfunction , mild aortic regurgitation,mitral valve prolapse is present Results from this visit, or from the past:CMP, serum or plasma [id number] panel, blood [id number] w/ diff 07-07-2020 08/07/19 BMP: NA:141, K:4.1, CL:105, C02:30, GLU:86,BUN:N/A. CR:0. LIPID- TC:191, TR: 68, HDL: 71, LDL: 105.01/09/19: CMP: Glucose 89,BUN 15,Creati 0.77,Na 141,K 4.2,Cl 104,CO2 29,Ca 10.2,Alkaline phosphatase 57 lipid panel, blood 01-09-2019 01/09/19: TC 165 ,TG 63 , HDL 75 ,LDL 76,04/18/18 FLP: TC 245, TR 80, HDL 77, LDL 150 M.3 TSH: 2.96 BMP: NA 139, GL 83, B 12, CR 0.76, K 3.9, CH 102, CO2 : Na 139 ,K 3.9 ,CL 102,CO2 26, GLU 83 , BUN 12, CR 0.76,06/15/14 : TC 200. TG 72. LDL 95. HDL 91. AST 24. ALT 20 .EKG 07/01/20 : NSR, poor r progression, NSST changes .EKG 08/04/19 : NSR, NSST changes .EKG 10/24/18 : NSR, NSST changes .EKG 06/20/18 : NSR, NSST changes .EKG (04/11/18): NSR, NSST changesECHO 12/30/19:LV chamber size is normal,LV wall thickness is normal,there is normal global systolic function and contractility,EF 55-60%,Normal left atrial pressure with grade I diastolic dysfunction,the mitral valve leaflet is mildly thickened,there is trace tricuspid trgurgitation.09/12/19 CAROTID: Antegrade flow noted in both vertebral arteries. Very mild bilateral internal carotid artery stenosis with less than 15% diameter stenosis.Had negative stress test done in 12/16/18 with normal LV systolic function , EF 65% . ECHO 12/30/19:LV chamber size is normal,LV wall thickness is normal,there is normal global systolic function and contractility,EF 55-60%,Normal left atrial pressure with grade I diastolic dysfunction,the mitral valve leaflet is mildly thickened,there is trace tricuspid trgurgitation. ECHO 04/24/18: LV chamber size is normal,LV wall thickness is normal,there is normal global systolic function and contactility,EF 50-55%,Normal left atrial pressure with grade I diastolic dysfunction,there is mild aortic regurgitation,mitral valve prolapse is present 08/25/2019 ; CTA Chest : No significant coronary artery Disease Normal ventricular function EF is 58% Suboptimal Study LAD medium size ,turtuous no significant disease LCX not well visualized in mild to distal segment no disease in proximal segment Ramus small on disease RCA large with no significant disease US DOPPLER: 08/03/17 Normal upper extremity waveforms indicating no significant arterial occulusive disease. Slight decrease in pressure on the right side relative to the left, which may not be clinically significant. 07/07/2020 ; Chest X-Ray : No acute cardiopulmonary Disease treadmill nuclear stress test (PROC) [id number]/08/19 TDM: Negative stress test for ischemia. Normal LV systolic function. Artifact noted. No previous study to compare. LVEF 65%. us arterial 08/03/17Normal upper extremity waveforms indicating no significant arterial occulusive disease. Slight decrease in pressure on the right side relative to the left, which may not be clinically significant. Bg Biswas MD [address] [place], [address], [facility] 02/06/2023 14:45:16 OBGyn Episode No OBEpisode recorded.
--- OUTSIDE RECORDS SUMMARY | 2024-09-29 17:25 | XMS_ITS | Clinical Summary ---
Author Organization [facility] Address [facility] [place] [address] Care Team Providers Care Divisional Merchandising Manager Name Role Phone Neli Albrecht MD Primary Care Provider + Allergies Active Allergy Reactions Criticality Noted Date Comments Codeine Dizziness,Unknown Low 12/04/2013 dizziness dizzy Medications Multiple Minerals-Vitamins (BONE ESSENTIALS) Cap Rx: Calcium Active Calcium Carbonate-Vit D-Min (CALCIUM 1200 OR) Take 1 tablet by mouth daily. Active losartan (COZAAR) 50 MG tabletIndications:E ssential hypertension Take 1 tablet (50 mg total) by mouth daily. 90 tablet 3 5 08/20/19 26 Active ezetimibe (ZETIA) 10 MG tabletIndications:M ixed hyperlipidemia Take 1 tablet (10 mg total) by mouth daily. 90 tablet 3 5 08/20/19 26 Active Active Problems Problem Noted Date Diagnosed Date Memory loss of unknown cause 05/14/2023 Overview (08/19/2024): at one point made a comment that he thought she was developing dementia. She is very productive and continues to manage all of her finances and home activities. She is retired so she does lose track of the days of the week more easily. She does not know why he thought she was forming dementia. She did have an MRI with her previous PCP which was read during. Assessment & Plan (08/19/2024 9:42 AM CDT): No major concerns today for early dementia. Request additional details from her about specific incidents that he noted. Will monitor carefully for any changes. Episodic cluster headache, not intractable 07/13 Overview (08/19/2024): Has had 2-3 episodes, lasts a few seconds and resolves. Essential hypertension 12/02/2018 Overview (08/19/2024): Takes losartan 50 mg daily. She does have a cuff at home and typically runs 130s systolic. Assessment & Plan (08/19/2024 9:40 AM CDT): Not controlled today. May be whitecoat hypertension. Request that she call me with home readings in 1 week to ensure she has normal results otherwise we can make adjustments to her losartan. CMP ordered. Mixed hyperlipidemia 12/02/2018 Overview (08/19/2024): Did not tolerate statins- possibly was causing some memory issues. Takes zetia. Assessment & Plan (08/19/2024 9:40 AM CDT): Will check lipid panel. She has made lifestyle changes since cholesterol was checked in May. Continue Zetia. Mitral valve prolapse 04/11/2018 Encounters Date Type Department Care Team Description 09/16/2024 9:50 AM CDT Office Visit [facility] [place] [address] [place] [address] Neli Albrecht MD Finger pain (Patient has new knot to her right thumb and it is painful. ) 09/16/2024 Travel 09/06/2024 Scan [facility] Scanned, [facility] 09/06/2024 Scan [facility] Scanned, [facility] 08/22/2024 Scan [facility] Scanned, [facility] 08/21/2024 MyChart Message Enc [place] [address] [place], [place] [id number] Neli Albrecht MD Update health status 08/20/2024 Telephone [facility] [address] [place] [address] Neli Albrecht MD Blood Pressure 08/19/2024 8:50 AM CDT Office Visit [address] [place] [address] Neli Albrecht MD New Patient (Here to get established. She has multiple issues. ) 08/19/[address] [place] [address] Neli Albrecht MD Information 08/19/[address] [place] [address] Neli Albrecht MD Record Request 08/19/[address] [address] Neli Albrecht MD Question 08/19/2024 Travel from Last 3 Months Immunizations Immunization Administration Dates Next Due Arexvy Respiratory Syncytial Virus (RSV, adjuvanted) 0.5 mL, PF 05/24/2023 Fluzone High Dose (IIV, triv alent, 0.5mL) 02/20/2024 Fluzone High Dose - >Age 65 (Prefilled Syringe) 02/26/2023 Influenza (Generic) 02/11/2023 Influenza Adult (Generic) 03/07/2022,09/2020,03/26/2020,2018,03/19/2018,03/18/2018 Pneumococcal (Prevnar 20) 02/08/2023 Shingrix 05/19/2019,03/20/2019 Tdap (Generic) 08/31/2022 Typhoid (Typhim ) 08/26/2022 Family History Medical History Relation Comments Emphysema Father Stroke Mother Arthritis Sister 1 Hypertension Sister 1 No Known Problems Son Relation Status Comments Father Mother Sister 1 Alive Sister 2 infection Son Alive Social History Tobacco Use Types Packs/Day Years Used Date Smoking Tobacco: Never Passive Smoke Exposure: Never Smokeless Tobacco: Never Tobacco Cessation:Counseling Given: Not Answered Comments:I have nver smoked Alcohol Use Standard [...] on file Sexual Orientation Not on file Last Filed Vital Signs Vital Sign Reading Time Taken Comments Blood Pressure 108/70 09/16/2024 9:55 AM CDT Pulse 75 09/16/2024 9:55 AM CDT Temperature 36.9 C (98.4 F) 09/16/2024 9:55 AM CDT Respiratory Rate 20 09/16/2024 9:55 AM CDT Oxygen Saturation 98% 09/16/2024 9:55 AM CDT Inhaled Oxygen Concentration - - Weight 59.4 kg (131 lb) 09/16/2024 9:55 AM CDT Height 161.3 cm (5' 3.5 ) 09/16/2024 9:55 AM CDT Body Mass Index 22.84 09/16/2024 9:55 AM CDT Plan of Treatment Upcoming Encounters Date Type Department Care Team (Late st Contact Info) Description 08/25/2025 10:30 AM CDT Office Visit [facility] Family [facility] [address] [address] Neli Albrecht MD [address] [facility] [address] [place] [address] 08/25/2025 11:30 AM CDT Office Visit [facility] [address] [address] Neli Albrecth MD [address] [facility] [address] [place] [address] Health Maintenance Due Date Last Done Comments Hepatitis C 1973 Annual Medicare Wellness Visit 2022 Mammogram Screening 09/20/2025 09/21/2023, 3 DTaP, Tdap and Td Vaccines (2 - Td or Tdap) 08/31/2032 08/31/2022 Colorectal Cancer Screening Colonoscopy (10 Years) 02/13/2034 02/14/2024, 02/14/2024 Zoster Vaccines Completed 05/19/2019, 03/20/2019 Dexa Scan (General) Completed 07/15/2022, Pneumococcal Vaccine: 50+ Years Completed 02/08/2023 RSV Immunization or 60+ Years Completed 05/24/2023 PHQ-2 (Physician [place]) Completed 08/19/2024 COVID-19 Vaccine Completed 09/06/2024, 04/2024, 02/26/2023, Additional history exists Meningococcal B Vaccine Aged Out No l onger eligible based on patient's age to complete this topic Meningococcal Vaccine Aged Out No victorina farhan eligible based on patient's age to complete this topic RSV Immunizations Under 20 Months Aged Out No longer eligible based on patient's age to complete this topic Procedures Procedure Name Priority Date/Time Associated Diagnosis Comments COLLECTION VENOUS BLOOD VENIPUNCTURE Routine 08/19/2024 10:04 AM CDT Mixed hyperlipidemia Essential hypertension Diabetes mellitus screening HEMOGLOBIN, GLYCOSYLATED Routine 08/19/2024 10:04 AM CDT Diabetes mellitus screening LIPID PANEL Routine 08/19/2024 10:04 AM CDT Mixed hyperlipidemia COMPREHENSIVE METABOLIC PANEL Routine 08/19/2024 10:04 AM CDT Mixed hyperlipidemia COLONOSCOPY GENERIC (SCAN ORDER) 02/14/2024 MAMMOGRAM GENERIC (SCAN ORDER) 09/21/2023 BONE DENSITY GENERIC (SCAN ORDER) 07/15/2022 from Last 3 Months or Most Recently Relevant to Health Maintenance Results * (ABNORMAL) HEMOGLOBIN, GLYCOSYLATED (08/19/2024 10:04 AM CDT) HGB A1C 5.4 4.5 - 6.2 % 08/19/2024 3:44 PM CDT MG-[facility] ESTIMATED AVG GLUCOSE 108(H) 74 - 106 MG/DL 08/19/2024 3:44 PM CDT MG-[facility] 08/19/2024 10:0 4 AM CDT us Neli Albrecht MD LABORATORY Final Re sult -[facility] [address] [place] [address], * COMPREHENSIVE METABOLIC PANEL (08/19/2024 10:04 AM CDT) Pathologist [facility] SODIUM S/P/B 141 136 - 145 MMOL/L 08/19/2024 3:23 PM CDT -[facility] POTASSIUM S/P/B 3.9 3.5 - 5.1 MMOL/L 08/19/2024 3:23 PM CDT -[facility] CHLORIDE S/P/B 104 98 - 107 MMOL/L 08/19/2024 3:23 PM CDT -[facility] CO2 28.3 21 - 32 MMOL/L 08/19/2024 3:23 PM CDT -[facility] GLUCOSE 92 70 - 99 MG/DL 08/19/2024 3:23 PM CDT -[facility] BUN 12 7 - 18 MG/DL 08/19/2024 3:23 PM CDT -[facility] CREATININE S/P/B 0.65 0.55 - 1.02 MG/DL 08/19/2024 3:23 PM CDT -[facility] CALCIUM S/P/B 9.6 8.4 - 10.5 MG/DL 08/19/2024 3:23 PM CDT -[facility] BILIRUBIN TOTAL S/P/B 1.0 0.2 - 1.0 MG/DL 08/19/2024 3:23 PM CDT -[facility] ALKALINE PHOSPHATASE S/P/B 77 55 - 142 U/L 08/19/2024 3:23 PM CDT [facility] AST 22 15 - 37 U/L 08/19/2024 3:23 PM CDT [facility] ALT 33 14 - 59 U/L 08/19/2024 3:23 PM CDT [facility] TOTAL PROTEIN S/P/B 6.7 6.4 - 8.2 G/DL 08/19/2024 3:23 PM T [facility] ALBUMIN S/P/B 3.9 3.4 - 5.0 G/DL 08/19/2024 3:23 PM CDT [facility] ANION GAP 8.7 5 - 15 MMOL/L 08/19/2024 3:23 PM T [facility] Comment:REFERENCE RANGE NOT ESTABLISHED OSMOLALITY (CALC) 291 MOSM/KG 025 3:23 PM T [facility] Comment:REFERENCE RANGE NOT ESTABLISHED GFR ESTIMATE >90 >90 ML/MIN/1. 73 M2 08/19/2024 3:23 PM T [facility] GFR NOTES GFR REFERENCE S: 08/19/2024 3:23 PM T [facility] Comment: THE ESTIMATED GFR IS CALCULATED USING THE 2020 CKD-EPI EQUATION. THE FOLLOWING CATEGORIES FOR GRADING RENAL FUNCTION ARE RECOMMENDED BY THE INTERNATIONAL SOCIETY OF NEPHROLOGY (KDIGO 2012 CLINICAL PRACTICE GUIDELINE). G1,NORMAL OR HIGH: >89 ml/min/1.73 m2 G2,MILDLY DECREASED: 60-89 ml/min/1.73 m2 G3A,MILDLY TO MODERATELY DECREASED: 45-59 ml/min/1.73 m2 G3B,MODERATELY TO SEVERELY DECREASED: 30-44 ml/min/1.73 m2 G4,SEVERELY DECREASED: 15-29 ml/min/1.73 m2 G5,KIDNEY FAILURE: <15 ml/min/1.73 m2 08/19/2024 10:0 4 AM CDT us Neli Albrecht MD LABORATORY Final Re sult [facility] [address] [place] [address], * (ABNORMAL) LIPID PANEL (08/19/2024 10:04 AM CDT) CHOLESTEROL 203(H) <200 MG/DL 08/19/2024 3:23 PM CDT [facility] TRIGLYCERIDES 47 <150 MG/DL 08/19/2024 3:23 PM CDT [facility] HDL 86 >40 MG/DL 08/19/2024 3:23 PM CDT [facility] LDL-C 108(H) <100 MG/DL 08/19/2024 3:23 PM CDT [facility] VLDL CALCULATION 9 5 - 28 MG/DL 08/19/2024 3:23 PM CDT [facility] CHOL/HDL RATIO 2.4 0.0 - 4.0 08/19/2024 3:23 PM CDT [facility] LDL/HDL 1.3 0.41 - 2.13 08/19/2024 3:23 PM CDT [facility] NON HDL CHOLESTEROL 117 <140 MG/DL 08/19/2024 3:23 PM CDT [facility] 08/19/2024 10:0 4 AM CDT Nlei Albrecht MD LABORATORY Final Re sult [facility] [address] [place] [address], * COLONOSCOPY GENERIC (SCAN ORDER) (02/14/2024) 02/14/2024 us [facility] Scanned SCANNING Final Resu lt * MAMMOGRAM GENERIC (SCAN ORDER) (09/21/2023) Anatomical Region Laterality Modality Other 09/21/2023 [facility] Scanned SCANNING Final Resu lt * BONE DENSITY GENERIC (SCAN ORDER) (07/15/2022) Anatomical Region Laterality Modality Other 07/15/2022 [facility] Scanned SCANNING Final Resu lt from Last 3 Months or Most Recently Relevant to Health Maintenance Insurance MEDICARE [facility] INSURANCE Advance Directives Documents on File Type Date Recorded Patient [employer] Temperer Expl anation Advance Directives and Livin g Will 09/11/2024 9:46 AM Care Teams Divisional Merchandising Manager Relationship Specialty Start Date End Date Neli Albrecht MD [address] [place] [address] PCP - General FAMILY PRACTICE 08/19/24
== END 2024-09-29 15:29 | disposition home or self-care (01) ==
LOC: ANHIMG 15:30
PROVIDERS: PCP Student in an Organized Health Care Education/Training Program; Visit Provider Student in an Organized Health Care Education/Training Program
DX: Z12.31 Encounter for screening mammogram for malignant neoplasm of breast (principal)
CPT/HCPCS: 77063; 77067

== ENCOUNTER 2024-11-29 12:04 | Emergency (ER) | payer MEDICARE, SELFPAY ==
--- NOTE | 2024-11-29 12:06 | ED.ABDPAIN ---
HPI - Abdominal Pain General Chief Complaint: Abdominal Pain Stated Complaint: abdominal pain Time Seen by Provider: 11/29/24 12:17 Source: patient, RN notes reviewed and old records reviewed Mode of arrival: ambulatory Limitations: no limitations History of Present Illness HPI narrative: 69-year-old female presents to the [facility] with upper abdominal discomfort, states that she is concern for gallbladder. States that started yesterday after eating greasy fissure. States she has felt bloated, belching. Reports bad pain last night, has improved today. Onset (ago): day(s) (1) Related Data Home Medications ?Medication ?Instructions ?Recorded ?Confirmed ?Last Taken ?Type losartan 50 mg tablet 50 mg PO DAILY 04/06/20 02/14/24 02/14/24 07:00 History ezetimibe 10 mg tablet 10 mg PO DAILY 07/05/23 02/14/24 02/14/24 07:00 History multivit with minerals-iron 18 1 tablet PO DAILY 01/30/24 02/14/24 02/11/24 History mg-folic ac 400 mcg-vit K 25 mcg tablet (Adults Multivitamin) Allergies Allergy/AdvReac Type Severity Reaction Status Date / Time codeine AdvReac Unknown Dizziness Verified 11/29/24 13:01 Review of Systems Review of Systems: All systems reviewed & are unremarkable except as noted in HPI and below Constitutional: Constitutional: Reports no additional constitutional complaints ENT: Reports system reviewed and no additional complaints, except as documented Cardiovascular: Cardiovascular: Reports no additional cardiovascular complaints, Denies chest pain and Denies dyspnea Respiratory: Respiratory: Reports no additional respiratory complaints, Denies chest congestion, Denies cough and Denies dyspnea Gastrointestinal: Gastrointestinal: Reports as per HPI, Reports abdominal pain, Reports belching, Reports bloating, Denies diarrhea, Denies nausea and Denies vomiting Musculoskeletal: Musculoskeletal: Reports no additional musculoskeletal complaints Integumentary/Breasts: Skin/Breast: Reports system reviewed and no additional complaints, except as docu PMFSH Past Medical History Medical History Hyperlipidemia Hypertension Spontaneous Acid reflux Thyroid disease Surgical History Surgical History H/O dilation and curettage Family History Family History Mother Hypertension, Onset Age: 84 Cerebrovascular accident, Onset Age: 84 Father , 89 Acute myocardial infarction Social History Social History Smoking status: Never smoker Second hand tobacco smoke exposure: No Alcohol intake: current Substance use: never Substance use type: does not use Living arrangements: with family Spiritual care concerns: No Comments At the time of my signature, I reviewed and agree with the nursing past medical, surgical, social, and family history. There is no relevant family history pertinent to the patient complaint. Exam Const: General: cooperative, healthy appearing, comfortable, no acute distress, well developed, alert and well nourished Nutritional Appearance: well nourished Orientation/consciousness: patient oriented x3 Limitations: no limitations HENMT: Head: normal to inspection Mouth: Yes Normal oral and palatal mucosa present, Yes lip normal, Yes tongue normal and Yes moist mucous membranes Eyes: General: appearance normal, both eyes and all related structures Alignment and Position: alignment normal Neck: Neck: normal visual inspection, full ROM, no lymphadenopathy and no meningeal signs Chest: Chest palpation & inspection: normal inspection of the chest Resp: Effort & Inspection: normal respiratory effort and able to speak in complete sentences Auscultation: clear to auscultation bilaterally, no crackles, no rales, no rhonchi and no wheezes Cardio: Rate: regular rate GI: GI Palp: Yes abdominal tenderness (Epigastric, right upper), Yes Soft to palpation, Yes Tenderness to palpation present (GI) and No Guarding due to palpation present (GI) Auscultation: normal bowel sounds Skin: General skin exam: normal color and no rashes or lesions noted Neuro: General: patient oriented x3, gait normal, moves all extremities and no meningeal signs Cognition (Neuro): normal cognition Speech: normal speech Gait exam (Neuro): Normal gait present Extrem: General: normal to inspection, full ROM, capillary refill normal and normal gait Psych: Appearance: grossly normal and well kempt Mental Status: mental status grossly normal Speech and movement: Normal speech and movement present and Clear speech present Affect: normal affect Attitude: cooperative Course Course Level of Care: Express Care Visit Vital Signs Vital signs: Vital Signs Temperature 98.2 F 11/29/24 12:12 Pulse Rate 79 06/21/25 12:12 Respiratory Rate 18 11/29/24 12:12 Blood Pressure 139/72 11/29/24 12:12 Pulse Oximetry 99 11/29/24 12:12 Oxygen Delivery Room Air 11/29/24 12:12 Temperature 98.2 F 11/29/24 12:12 Pulse Rate 79 11/29/24 12:12 Respiratory Rate 18 11/29/24 12:12 Blood Pressure 139/72 11/29/24 12:12 Pulse Oximetry 99 11/29/24 12:12 Oxygen Delivery Room Air 11/29/24 12:12 Reviewed MDM - Abdominal Pain MDM Narrative Medical decision making narrative: Patient sitting in exam room. Patient is nontoxic, vitals are stable. Patient presents with abdominal discomfort after eating fried fish. Discussed concerns for gallbladder issues, unable to do workup in clinic. Discussed transfer to the ER which she is declining at this time, would like to trying call primary care provider on Sunday. The discussed signs and symptoms to proceed to the emergency room such as but not limited to nausea, vomiting, and able to keep fluids down, fevers or excruciating pain. Patient verbalized understand Discharge instructions reviewed with patient, as well as provided in writing per nursing staff. The instructions also include specific and strict return/GO TO THE ER as well as f/u information. All questions have been answered, and the patient deny any further questions with discharge and discharge plan. Some parts of this dictation were generated by voice recognition software and may contain typographical and/or grammatical inaccuracies. Differential Diagnosis Differential diagnosis: Likely abdominal pain and other (Biliary colic, gastroenteritis, pancreatitis, cholecystitis) Critical Care Time Critical Care Time Critical Care Time: No Discharge Plan Discharge Clinical Impression: Abdominal pain Qualifiers: Abdominal location: upper abdomen, unspecified Qualified Code(s): R10.10 - Upper abdominal pain, unspecified Patient Disposition: Home Condition: Stable Instructions: Biliary Colic (ED), Low Fat Diet (ED), Abdominal Pain (ED) Additional Instructions: Keep your diet very simple. Nothing fried, greasy, spicy or highly processed. For the 1st 24 hours stick with a liquid diet. Take Pepcid daily Follow-up with primary care provider If symptoms get worse please proceed to the emergency room Patient Language: Korean Prescriptions: No Action losartan 50 mg tablet 50 mg PO DAILY ezetimibe 10 mg tablet 10 mg PO DAILY Adults Multivitamin 18 mg iron-400 mcg-25 mcg Tablet 1 tablet PO DAILY Follow-up/Referrals: Ambrocio,Neli Hebert MD [Primary Care Provider] - 1 Week ([facility] care follow up ) Time of Disposition: 12:26
[2024-11-29 12:12] VITALS: BP 139/72; PULSE 79; RESP 18; TEMP 36.8; O2SAT 99
== END 2024-11-29 12:30 | disposition home or self-care (01) ==
PROVIDERS: Emergency Provider Nurse Practitioner; PCP Student in an Organized Health Care Education/Training Program
DX: R10.11 Right upper quadrant pain (principal); R10.13 Epigastric pain; I10 Essential (primary) hypertension; E78.5 Hyperlipidemia, unspecified; K21.9 Gastro-esophageal reflux disease without esophagitis
CPT/HCPCS: 99211; G0463

== ENCOUNTER 2024-11-29 12:53 | Emergency (ER) | payer MEDICARE, SELFPAY ==
--- NOTE | ~2024-11-29 | CT_ITS ---
CT abdomen pelvis w con Ordering provider: Daysi Catherine MD History: 69 years Female with . RUQ/epigastric TTP . Comparison: None. Technique: CT abdomen and pelvis with IV and without oral contrast. Automated exposure control and it erative reconstruction technique were employed. The dose-length product was 228.74 mGy-cm. 100 mL Omn ipaque 350 was given IV. Findings: VISUALIZED LOWER CHEST: Normal. UPPER ABDOMINAL ORGANS: Liver: Normal. Gallbladder: Normal. Spleen: Normal. Stomach/duodenum: Small sliding hiatus hernia. Pancreas: Normal. Adrenals: Normal. Kidneys: Left parapelvic renal cysts. Tiny cyst in the left kidney lower pole. PELVIC ORGANS: The bladder is normal. BOWEL AND MESENTERY: Colon: No evidence of diverticulitis. Fecal material is loaded in the colon.. Normal appendix. Small Bowel: Normal. No obstruction. Peritoneum/mesentery: No free air or free fluid. No mesenteric lymphadenopathy. RETROPERITONEUM: Mild atheromatous disease of the abdominal aorta. No retroperitoneal lymphadenopat hy. MUSCULOSKELETAL: Superficial soft tissues: The superficial soft tissues are normal. Bones: Normal spine. Bilateral sacroiliacs. IMPRESSION: 1. No evidence of appendicitis, diverticulitis or intestinal obstruction. 2. Left kidney parapelvic cysts. 3. Constipation. 4. Small sliding hiatus hernia. Reviewed, dictated and finalized at location A.
--- NOTE | ~2024-11-29 | US_ITS ---
Limited ABDOMINAL ULTRASOUND (Doppler ultrasound interrogation techniques used as needed for this exa m.) Ordering provider: Daysi Catherine MD History: . RUQ tenderness; sent from . Comparison: None. FINDINGS: PANCREAS: Normal echotexture and size. PORTAL VEIN: Hepatopedal flow demonstrated. LIVER: Normal size and echotexture. No focal hepatic lesions or perihepatic fluid collections are manuel ntified. BILIARY DUCTS: No intra or extrahepatic biliary dilation. Common bile duct measures 3.4 mm in diamete r which is normal for patient's age. GALLBLADDER: Normal. No stones, sludge, gallbladder wall thickening or pericholecystic fluid. Wall th ickness is 2.5 mm. Negative sonographic Saunders's sign. IVC: Patent. FREE FLUID: None visualized within the upper abdomen. IMPRESSION: normal right upper quadrant ultrasound. Reviewed, dictated and finalized at location A.
[2024-11-29 12:56] VITALS: BP 110/64; PULSE 83; RESP 20; TEMP 36.7; O2SAT 100
[2024-11-29 13:23] VITALS: BP 168/68; PULSE 67; RESP 14; O2SAT 100
[2024-11-29 13:29] LABS: Basophils Absolute Auto 0.1 K/mm3 (0.0-0.1); Basophils Percent Auto 0.7 % (0.2-1.2); Eosinophils Absolute Auto 0.1 K/mm3 (0-0.3); Eosinophils Percent Auto 0.9 % (0-4.4); Hematocrit 38.5 % (37.0-47.0); Hemoglobin 13.4 g/dL (12.0-15.0); Immature Granulocyte Absolute 0.01 K/mm3 (0.00-0.031); Immature Granulocyte Percent A 0.1 % (0-0.5); Lymphocytes Absolute Auto 1.79 K/mm3 (0.9-3.2); Lymphocytes Percent Auto 25.5 % (18.3-44.2); Mean Corpuscular HGB Conc 34.8 g/dl (32-36); Mean Corpuscular Hemoglobin 34.1 pg (26-34); Mean Platelet Volume 10.2 fl (7.4-10.4); Monocytes Absolute Auto 0.7 K/mm3 (0.1-0.6); Monocytes Percent Auto 9.3 % (2.6-8.5); Neutrophils Absolute Auto 4.5 K/mm3 (1.3-6.7); Neutrophils Percent Auto 63.5 % (45.5-73.1); Platelet Count Result 326 k/mm3 (150-375); Red Blood Count 3.93 M/mm3 (4.2-5.4)
[2024-11-29 13:47] LABS: Alanine Aminotransferase 31 U/L (6-35); Albumin Level 4.2 g/dL (3.5-5.1); Alkaline Phosphatase 86 U/L (38-126); Anion Gap 9 mmol/L (4-12); Aspartate Amino Transferase 38 U/L (14-36); Bilirubin,Total 0.8 mg/dL (0.2-1.3); Blood Urea Nitrogen 9 mg/dL (7-17); Calcium 9.8 mg/dL (8.4-10.2); Carbon Dioxide 25 mmol/L (22-30); Chloride 104 mmol/L (98-107); Estimated CRCL calculation 65 ml/min; Estimated Glomerular Filt Rate > 60; Glucose 93 mg/dL (65-110); Lipase 192 U/L (23-300); Potassium 3.7 mmol/L (3.4-5.0); Sodium 138 mmol/L (137-145); Total Protein 7.3 g/dL (6.3-8.2)
[2024-11-29 13:56] LABS: Add Urine Microscopic? NO; Appearance Urine Clear (Clear); Bilirubin Urine Negative (Negative); Blood Urine Negative (Negative); Color Urine Yellow (Yellow); Glucose Urine UA Negative (Negative); Ketones Urine Trace mg/dL (Negative); Leukocyte Esterase Ur Negative LEU/UL (Negative); Nitrate Urine Negative (Negative); Protein Urine Negative (Negative); Specific Grav Ur 1.009 (1.001-1.035)
--- NOTE | 2024-11-29 15:07 | ED_ITS ---
HPI - Abdominal Pain General Chief Complaint: Abdominal Pain Stated Complaint: GALLBLADDER? Time Seen by Provider: 11/29/24 14:03 Source: patient Mode of arrival: ambulatory Limitations: no limitations History of Present Illness HPI narrative: Patient presents with concern for an issue with her gallbladder. She has been having epigastric/right upper quadrant abdominal pain that started night. She otherwise denies any radiation of pain. This has never happened before. She initially presented to urgent care but was sent to the emergency department for further workup to include CT. She had initially denied any nausea vomiting or diarrhea although she does state that the time of my assessment that she was feeling bit nauseated. Her last bowel movement was today and she denies any blood in it. No hematuria or dysuria she has some urinary frequency . she lists an allergy to codeine although she states that she received this medication decades ago but does not recall the specifics. Related Data Home Medications ?Medication ?Instructions ?Recorded ?Confirmed ?Last Taken ?Type losartan 50 mg tablet 50 mg PO DAILY 04/06/20 02/14/24 02/14/24 07:00 History ezetimibe 10 mg tablet 10 mg PO DAILY 07/05/23 02/14/24 02/14/24 07:00 History multivit with minerals-iron 18 1 tablet PO DAILY 01/30/24 02/14/24 02/11/24 History mg-folic ac 400 mcg-vit K 25 mcg tablet (Adults Multivitamin) Allergies Allergy/AdvReac Type Severity Reaction Status Date / Time codeine AdvReac Unknown Dizziness Verified 11/29/24 15:24 [facility] Past Medical History Medical History Hyperlipidemia Hypertension Spontaneous Acid reflux Thyroid disease Surgical History Surgical History H/O dilation and curettage Family History Family History Mother Hypertension, Onset Age: 84 Cerebrovascular accident, Onset Age: 84 Father , 89 Acute myocardial infarction Social History Social History Smoking status: Never smoker Second hand tobacco smoke exposure: No Alcohol intake: current Substance use: never Substance use type: does not use Living arrangements: with family Spiritual care concerns: No Exam 2 Narrative: GENERAL: Well-appearing, well-nourished, and in no acute distress. HEAD: Normocephalic, atraumatic. EYES: Non injected, non icteric ENT: Nares clear, no rhinorrhea or epistaxis. Gross auditory acuity intact. NECK: Supple. No meningismus. CHEST: Speaking in full sentences. No respiratory distress. HEART: Regular rate and rhythm. . ABDOMEN: Not obese. Soft, nondistended. Epigastric tenderness to palpation with guarding but No rigidity. No tenderness throughout rest of abdomen. Not peritoneal. EXTREMITIES: Normal range of motion. No lower extremity edema. SKIN: Warm, dry, no rash. NEURO: No focal deficits. Alert and oriented. Answering questions. Following commands. Normal speech without aphasia or dysarthria. PSYCH: Normal mood and affect. Course Vital Signs Vital signs: Vital Signs Temperature 98.1 F 11/29/24 12:56 Pulse Rate 83 11/29/24 12:56 Respiratory Rate 20 11/29/24 12:56 Blood Pressure 110/64 11/29/24 12:56 Pulse Oximetry 100 11/29/24 12:56 Oxygen Delivery Room Air 11/29/24 12:56 Temperature 98.1 F 11/29/24 12:56 Pulse Rate 88 11/29/24 16:32 Respiratory Rate 16 11/29/24 16:32 Blood Pressure 132/77 11/29/24 16:32 Pulse Oximetry 99 11/29/24 16:32 Oxygen Delivery Room Air 11/29/24 13:23 MDM - Abdominal Pain MDM Narrative Medical decision making narrative: Patient presents the emergency department with epigastric/right upper quadrant abdominal pain starting last night. She initially presented to urgent care but was sent to the emergency department for further workup to include a CT scan; given the degree of tenderness on exam, inclined to concur and proceed with ordering this. In the emergency department they are afebrile with vital signs within normal limits. CBC without marked abnormalities particularly no leukocytosis. Lipase normal. Ondansetron and morphine were both ordered for the patient although she declined these. CT scan as below shows both constipation and hiatal hernia. Discharged with prescriptions for bowel regimen as well as omeprazole. Advised follow-up in given emergency department return precautions. Otherwise stable for discharge. Differential Diagnosis Differential diagnosis: Likely abdominal pain, constipation, diverticulitis, pancreatitis and other (angina/ACS though far less likely given pointed location at epigastrium and the degree of tenderness to palpation; gastritis; peptic/gastric ulcer; spectrum of biliary etiology) Lab Data Attestation: I reviewed the patient's lab results. 11/29/24 13:18 11/29/24 13:17 Labs: Lab Results 11/29/24 11/29/24 11/29/24 Range/Units 13:17 13:18 13:43 WBC 7.0 (4.5-10.0) K/mm3 RBC 3.93 L (4.2-5.4) M/mm3 Hgb 13.4 (12.0-15.0) g/dL Hct 38.5 (37.0-47.0) % MCV 98.0 (80-100) fl MCH 34.1 H (26-34) pg MCHC 34.8 (32-36) g/dl RDW 13.0 (11.5-14.5) % Plt Count 326 (150-375) k/mm3 MPV 10.2 (7.4-10.4) fl Immature Gran % (Auto) 0.1 (0-0.5) % Neut % (Auto) 63.5 (45.5-73.1) % Lymph % (Auto) 25.5 (18.3-44.2) % [place] % (Auto) 9.3 H (2.6-8.5) % Eos % (Auto) 0.9 (0-4.4) % Baso % (Auto) 0.7 (0.2-1.2) % Lymph # (Auto) 1.79 (0.9-3.2) K/mm3 Sumner # (Auto) 0.7 H (0.1-0.6) K/mm3 Eos # (Auto) 0.1 (0-0.3) K/mm3 Baso # (Auto) 0.1 (0.0-0.1) K/mm3 Abs Immat Gran (auto) 0.01 (0.00-0.031) K/mm3 Absolute Neuts (auto) 4.5 (1.3-6.7) K/mm3 Absolute Nucleated RBC 0.000 (0.0-0.012) K/mm3 Nucleated RBC % 0.0 (0.0-0.2) % Sodium 138 (137-145) mmol/L Potassium 3.7 (3.4-5.0) mmol/L Chloride 104 (98-107) mmol/L Carbon Dioxide 25 (22-30) mmol/L Anion Gap 9 (4-12) mmol/L BUN 9 (7-17) mg/dL Creatinine 0.62 L (0.7-1.0) mg/dL Estim Creat Clear Calc 65 ml/min Estimated GFR > 60 (59 - ) Glucose 93 (65-110) mg/dL Calcium 9.8 (8.4-10.2) mg/dL Total Bilirubin 0.8 (0.2-1.3) mg/dL AST 38 H (14-36) U/L ALT 31 (6-35) U/L Alkaline Phosphatase 86 (38-126) U/L Total Protein 7.3 (6.3-8.2) g/dL Albumin 4.2 (3.5-5.1) g/dL Lipase 192 (23-300) U/L Urine Color Yellow (Yellow) Urine Appearance Clear (Clear) Urine pH 6.0 (5.0-9.0) Ur Specific [place] 1.009 (1.001-1.035) Urine Protein Negative (Negative) mg/dL Urine Glucose (UA) Negative (Negative) mg/dL Urine Ketones Trace H (Negative) mg/dL Ur Blood (Man) Negative (Negative) Urine Nitrate Negative (Negative) Urine Bilirubin Negative (Negative) Urine Urobilinogen 1.0 (<2.0) mg/dL Leukocyte Esterase Rfl Negative (Negative) DEVANG/UL Imaging Data Radiologist's impression: ITS Impressions Abdomen/Pelvis CT 11/29/24 17:40 IMPRESSION: 1. No evidence of appendicitis, diverticulitis or intestinal obstruction. 2. Left kidney parapelvic cysts. 3. Constipation. 4. Small sliding hiatus hernia. Abdomen Ultrasound 11/29/24 17:51 IMPRESSION: normal right upper quadrant ultrasound. ECG Data EKG #1: Attestation: I personally reviewed and interpreted this ECG as follows: ECG completion date: 11/29/24 ECG completion time: 15:31 Interpretation: Normal sinus rhythm at a rate of 60 beats per minute. NC interval 148. QRS 85. QT/QTC 405/407. Good R-wave progression across the precordial leads. No T- wave inversions. Normal axis. Discharge Plan Discharge Clinical Impression: Abdominal pain, epigastric, Cyst of left kidney, Constipation, Sliding hiatal hernia Patient Disposition: Home Condition: Stable Instructions: Antibiotic Form, Hiatal Hernia (DC), Constipation (ED), High Fiber Diet (ED), Epigastric Pain (ED), Kidney Cyst (ED) Additional Instructions: Your workup showed both constipation as well as a hiatal hernia. For the constipation recommend increasing the amount of water you drink, increasing fiber in her diet, as well as a bowel regimen that includes both stool softener (psyllium/fiber), Miralax, and laxative (magnesium citrate). The hiatal hernia may benefit from a short course of medication prescribed which helps with the acid production in the stomach. Follow-up with your primary care physician. If you do not have 1 the name of the doctors listed below. Return to the emergency department immediately if the pain worsens, you develop a fever, or you have persistent or uncontrolled vomiting, or for any new symptoms or concerns. Patient Language: Turkmen Prescriptions: New polyethylene glycol 3350 [Miralax] 17 gram/dose powder 17 g PO DAILY Qty: 119 0RF psyllium husk [Fiber (psyllium husk)] 0.4 gram capsule 0.4 g PO DAILY Qty: 30 0RF magnesium citrate Solution 150 ml PO DAILY PRN (Reason: constipation) Qty: 296 0RF omeprazole 20 mg tablet,delayed release (DR/EC) 20 mg PO DAILY Qty: 14 0RF No Action losartan 50 mg tablet 50 mg PO DAILY ezetimibe 10 mg tablet 10 mg PO DAILY Adults Multivitamin 18 mg iron-400 mcg-25 mcg Tablet 1 tablet PO DAILY Follow-up/Referrals: Ambrocio,Neli Hebert MD [Primary Care Provider] - Benny Lubin MD [Physician] - (Primary care physician/family practice) Stand Alone Forms: Work/School Release IP Time of Disposition: 18:15
--- NOTE | 2024-11-29 15:08 | ECG_ITS ---
Test Date: 2024-11-29 15:31:04 Measurements Intervals [place] Rate: 60 P: 71 ND: 148 QRS: 72 QRSD: 85 T: 47 QT: 405 QTc: 408 Interpretive Statements SINUS RHYTHM POSSIBLE LEFT ATRIAL ENLARGEMENT BASELINE ARTIFACT- I, II, III, AVR, AVL, AVF, V4 BORDERLINE ECG No previous ECG available for comparison Electronically Signed On 11-29-2024 15:39:34 CDT by Josemanuel Hill D.O.
[2024-11-29 16:32] VITALS: BP 132/77; PULSE 88; RESP 16; O2SAT 99
--- NOTE | 2024-11-29 17:31 | PC.NURSE ---
Pt. requesting Tylenol for headache. Dr. Catherine notified and verbal order given.
[2024-11-29] MEDS: ACETAMINOPHEN 500 MG TABLET 1000 MG PO (17:38)
[2024-11-29] MEDS: PANTOPRAZOLE 40 MG TABLET PO (19:15)
[2024-11-29] MEDS: polyethylene glycoL 3350 17 GM POWD.PACK PO (19:15)
== END 2024-11-29 19:22 | disposition home or self-care (01) ==
PROVIDERS: Emergency Medicine; Emergency Provider Student in an Organized Health Care Education/Training Program; PCP Student in an Organized Health Care Education/Training Program
DX: K59.00 Constipation, unspecified (principal); N28.1 Cyst of kidney, acquired; K44.9 Diaphragmatic hernia without obstruction or gangrene; I10 Essential (primary) hypertension; E78.5 Hyperlipidemia, unspecified; E07.9 Disorder of thyroid, unspecified; K21.9 Gastro-esophageal reflux disease without esophagitis; Z79.899 Other long term (current) drug therapy; R94.31 Abnormal electrocardiogram [ECG] [EKG]
CPT/HCPCS: 36415; 74177; 76705; 80053; 81003; 83690; 85025; 93005; 99284; A9270; Q9967